=== PATIENT | female | born 1965 | race Caucasian/White ===

== ENCOUNTER 2021-06-03 19:22 | Inpatient (IN) | payer BC ==
--- OUTSIDE RECORDS SUMMARY | 2021-06-03 19:26 | XMS REPORT | Continuity of Care Document ---
:1965 Author Organization [facility] t Address [address] [place] [address] Care Team Providers Name Role Phone SAKINA Attending Clinician Unavailable Mandeep Attending Clinician Unavailable Linda OREILLY Attending Clinician Unavailable Payers Payer Name Policy Type Policy Number Effective Date Expiration Date S elvis [id number] PPO [id number] 2021 00:00:00 Problems This patient has no known problems. Allergies, Adverse Reactions, Alerts This patient has no known allergies or adverse reactions. Social History Social Habit Start Date Stop Date Quantity Comments Source Tobacco use and 2021-05-28 2021-05-28 Smokeless tobacco [facility] exposure 00:00:00 00:00:00 non-user Alcohol intake 2021-05-28 2021-05-28 [facility] 00:00:00 00:00:00 non-drinker (finding) Sex Ass[birth year] At [birth year] [facility] 00:00:00 00:00:00 Smoking Status Start Date Stop Date Source Never smoked tobacco [facility] Medications Ordered Filled Start Stop Current Ordering Indication Dosage Frequency Signature Comments Components Source Medication Medication Date Date Medication? Clinician (SIG) Name Name No known No No known PR medications 2-24 medication He alth 10:14: s 06 Procedures This patient has no known procedures. Encounters Start End Encounter Admission Attending Care Care Encounter Source Date/Time Date/Time Type Type Clinicians Facility Department ID 2021-05-25 [id number] [place] 10:32:52 [facility] 2021-04-[address] [facility] [id number] - [facility] 11:07:13 [id number] [facility] 2021-04-29 [facility] [id number] - [facility] 11:04:31 [id number] [facility] 2021-06-03 2021-06-03 Telephone Arabella Mckeon [id number] [place] 00:00:00 00:00:00 Arabella Mckeon [id number] [facility] [id number] [facility] [id number] 1 Results This patient has no known results.
[2021-06-03] MEDS ORDERED: MORPHINE 4 MG/ML SYR ONE ×2 (20:18→23:39)
[2021-06-03] MEDS ORDERED: ONDANSETRON 4 MG/2 ML VIAL ONE ×2 (20:18→23:39)
[2021-06-03] MEDS ORDERED: FAMOTIDINE 20 MG/2 ML VIAL IV ONE (20:19)
[2021-06-03] MEDS ORDERED: NA CHLORIDE 0.9% 1,000 ML ONE (20:19)
[2021-06-03 20:35] LABS: Urine Blood Negative (Negative); Urine Glucose Negative (Negative); Urine Protein Negative (Negative); Urine Specific Gravity >=1.030 (1.005-1.030); Urine pH 5.5 (5.0-7.0)
[2021-06-03 20:49] LABS: Absolute Lymphocytes (CBC) 4.4 K/uL (0.7-4.9); Hematocrit 48.8 % (36.0-45.0); Lymphocytes % 27.9 % (15.3-44.8); MPV 9.2 fL (7.6-11.3); RBC Red Blood Cell Count 5.73 M/uL (3.86-4.86)
[2021-06-03 21:07] LABS: Barbiturates NEGATIVE (NEGATIVE); Benzodiazepines NEGATIVE (NEGATIVE); Cocaine NEGATIVE (NEGATIVE); METHAMPHETAM NEGATIVE (NEGATIVE); Methadone NEGATIVE (NEGATIVE); Opiates NEGATIVE (NEGATIVE); Phencyclidine NEGATIVE (NEGATIVE); THC Cannibis NEGATIVE (NEGATIVE)
[2021-06-03 21:27] LABS: Albumin 4.1 g/dL (3.4-5.0); Bilirubin Direct 0.1 mg/dL (0-0.2); Bilirubin Total 0.5 mg/dL (0.2-1.0); Potassium 3.8 mmol/L (3.5-5.1); Protein, Total 8.2 g/dL (6.4-8.2)
[2021-06-03 21:49] LABS: Urine Bacteria <20 /HPF (<20); Urine RBC <5 /HPF (NONE SEEN)
--- NOTE | 2021-06-03 23:42 | ER ---
Nurse's Notes [facility] Name: Nereida Mason Age: 56 yrs Sex: Female : 1965 Arrival Date: 06/03/2021 Time: 19:25 Bed 7 Private MD: Diagnosis: Nausea with vomiting, unspecified Presentation: 06/03 19:37 Chief complaint: Patient states: "I have been having right sided stomach pain that has ab2 been going on for a few weeks and today it has gotten so severe I cant walk or eat. I've been vomiting all day.". Coronavirus screen: Vaccine status: Patient reports being unvaccinated. Client denies travel out of the [place] in the last 14 days. At this time, the client does not indicate any symptoms associated with coronavirus-19. Ebola Screen: Patient negative for fever greater than or equal to 101.5 degrees Fahrenheit, and additional compatible Ebola Virus Disease symptoms Patient denies exposure to infectious person. Patient denies travel to an Ebola-affected area in the 21 days before illness onset. No symptoms or risks identified at this time. Initial Sepsis Screen: Does the patient meet any 2 criteria? HR > 90 bpm. No. Patient's initial sepsis screen is negative. Does the patient have a suspected source of infection? No. Patient's initial sepsis screen is negative. Risk Assessment: Do you want to hurt yourself or someone else? Patient reports no desire to harm self or others. Onset of symptoms is unknown. 19:37 Method Of Arrival: Ambulatory ab2 19:37 Acuity: DANIELLE 3 ab2 Triage Assessment: 19:42 General: Appears in no apparent distress. uncomfortable, Behavior is calm, cooperative, ab2 appropriate for age. Pain: Complains of pain in right upper quadrant and right lower quadrant Pain currently is 10 out of 10 on a pain scale. GI: Pt is actively vomiting Reports lower abdominal pain, upper abdominal pain, intolerance of fluids, intolerance of food, nausea, vomiting. Historical: - Allergies: 19:41 No Known Allergies; ab2 - PMHx: 19:41 None; ab2 - PSHx: 19:41 Appendectomy; Tonsillectomy; ab2 - Immunization history:: Adult Immunizations Adult Immunizations up to date. - Social history:: Smoking status: Patient denies any tobacco usage or history of. Screenin:48 Abuse screen: Denies threats or abuse. Nutritional screening: No deficits noted. ss7 Tuberculosis screening: No symptoms or risk factors identified. Fall Risk IV access (20 points). Assessment: 20:00 Reassessment: See triage assessment.. ss7 20:08 Reassessment: Care assumed. Pt wheeled to Ct per radiology in [facility]. Will assess upon ss7 return. Ss. 21:26 Reassessment: PO contrast started. 1st was attempted prior to antiemetic and pt ss7 vomitted. . 23:46 Reassessment: Pt wheeled to Room 7 in [facility] with all personal belongings. Care ss7 transferred. Report given by DENILSON Siegel to Ning/Denilson Kidd. . 23:49 GI: Bowel sounds present X 4 quads. Abd is soft X 4 quads Abd is non tender. lr4 Vital Signs: 19:37 BP 125 / 104; Pulse 132; Resp 22; Temp 97.8(TE); Pulse Ox 97% on R/A; Weight 76.2 kg; ab2 Height 5 ft. 6 in. (167.64 cm); Pain 10/10; 22:51 BP 145 / 80; Pulse 91; Resp 18; Pulse Ox 99% ; ss7 03/03 00:00 BP 131 / 86; Pulse 76; Resp 18 S; Pulse Ox 97% on R/A; as6 01:00 BP 122 / 73; Pulse 62; Resp 18 S; Pulse Ox 96% on R/A; as6 02:10 BP 104 / 64; Pulse 60; Resp 20 S; Pulse Ox 97% on R/A; as6 03:00 BP 93 / 66; Pulse 56; Resp 20 S; Pulse Ox 98% on R/A; as6 04:00 BP 95 / 60; Pulse 53; Resp 19 S; Pulse Ox 98% on R/A; as6 03/02 19:37 Body Mass Index 27.12 (76.20 kg, 167.64 cm) ab2 ED Course: 06/03 19:25 Patient arrived in ED. jj6 19:41 Triage completed. ab2 19:42 Arm band placed on left wrist. ab2 19:43 Jose L Tang PA is PHCP. cp 19:43 Alec De Oliveira MD is Attending Physician. cp 20:00 Selina Meyers, DENILSON is Primary Nurse. sm5 20:00 Inserted saline lock: 20 gauge in right antecubital area, using aseptic technique. 5 Blood collected. 20:10 Lipase Sent. sm5 20:10 Hepatic Function Sent. sm5 20:10 CBC with Diff Sent. sm5 20:10 Basic Metabolic Panel Sent. sm5 21:10 Basic Metabolic Panel Sent. sm5 21:11 Hepatic Function Sent. sm5 21:11 Lipase Sent. sm5 21:11 Urine --Ancillary (enter results) Sent. sm5 22:47 CT Abd/Pelvis - PO and IV Contrast In Process Unspecified. EDMS 23:41 Uche Ortega MD is Hospitalizing Provider. cp 23:48 Patient has correct armband on for positive identification. Bed in low position. Call 7 light in reach. Side rails up X2. 23:48 No provider procedures requiring assistance completed. [facility] 06/04 04:42 Patient admitted, IV remains in place. as6 Administered Medications: 06/03 20:24 Drug: Zofran (Ondansetron) 4 mg Route: IVP; Site: right antecubital; sm5 21:10 Follow up: Response: Marked relief of symptoms sm5 20:24 Drug: morphine 4 mg Route: IVP; Site: right antecubital; sm5 21:10 Follow up: Response: Marked relief of symptoms sm5 20:24 Drug: Pepcid (famotidine) 20 mg Route: IVP; Site: right antecubital; sm5 21:09 Follow up: Response: Marked relief of symptoms 5 20:25 Drug: NS 0.9% 1000 ml Route: IV; Rate: 1 bolus; Site: right antecubital; sm5 21:10 Follow up: IV Status: Completed infusion; IV Intake: 1000ml sm5 21:30 Follow up: IV Status: Completed infusion 7 23:46 Drug: Zofran (Ondansetron) 4 mg Route: IVP; Site: right antecubital; ss7 23:50 Follow up: Response: No adverse reaction 7 23:46 Drug: morphine 4 mg Route: IVP; Site: right antecubital; ss7 23:50 Follow up: Response: No adverse reaction [facility] 06/04 01:38 Drug: metroNIDAZOLE 500 mg Volume: 100 ml; Route: IVPB; Infused Over: 30 mins; Site: kd3 right antecubital; 02:31 Follow up: Response: No adverse reaction; IV Status: Completed infusion kd3 01:38 Drug: Phenergan (promethazine) 12.5 mg Route: IVP; Site: right antecubital; kd3 04:42 Follow up: Response: No adverse reaction as6 02:32 Drug: Cipro (ciprofloxacin) 400 mg Volume: 200 ml; Route: IVPB; Infused Over: 60 mins; kd3 Site: right antecubital; 04:43 Follow up: Response: No adverse reaction; IV Status: Completed infusion; IV Intake: as6 200ml Intake: 06/03 21:10 IV: 1000ml; Total: 1000ml. sm5 06/04 04:43 IV: 200ml; Total: 1200ml. as6 Outcome: 06/03 23:41 Decision to Hospitalize by Provider. cp 23:49 Condition: stable lr4 06/04 04:42 Admitted to Tele accompanied by tech, via wheelchair, room 430, with chart, Report as6 called to RN for 430 04:43 Patient left the ED. as6 Signatures: Dispatcher [employer] EDMS Jose L Tang PA PA cp Sarita Heller jj6 Michi Roach RN RN as6 Autumn Wei RN RN kd3 Selina Meyers RN RN sm5 Jordi Louis Shana RN RN ss7 Janina Gonzalez RN RN lr4
--- NOTE | 2021-06-03 23:42 | EDPHYS ---
Physician Documentation [facility] Name: Nereida Mason Age: 56 yrs Sex: Female : 1965 Arrival Date: 06/03/2021 Time: 19:25 Bed 7 Private MD: ED Physician Alec De Oliveira HPI: 06/03 20:05 This 56 yrs old Female presents to ER via Ambulatory with complaints of Abdominal Pain, cp Abdominal Swelling, Abdominal Cramping. 20:05 The patient presents with abdominal pain right lower quadrant. cp 20:05 Onset: The symptoms/episode began/occurred and became worse today, started weeks ago. cp Associated signs and symptoms: Pertinent positives: nausea and vomiting, anorexia, Pertinent negatives: blood in stools, constipation, diarrhea, fever, vomiting blood. The symptoms are described as constant. Modifying factors: the symptoms are aggravated by pressure. Severity of pain: in the emergency department the pain is unchanged despite home interventions. Historical: - Allergies: 19:41 No Known Allergies; ab2 - PMHx: 19:41 None; ab2 - PSHx: 19:41 Appendectomy; Tonsillectomy; ab2 - Immunization history:: Adult Immunizations Adult Immunizations up to date. - Social history:: Smoking status: Patient denies any tobacco usage or history of. ROS: 20:10 Constitutional: Positive for poor PO intake, Negative for body aches, chills, fever. cp 20:10 Cardiovascular: Negative for chest pain, palpitations. cp 20:10 Respiratory: Negative for cough, shortness of breath, wheezing. 20:10 Abdomen/GI: Positive for abdominal pain, nausea and vomiting, anorexia, of the right lower quadrant, Negative for diarrhea, constipation. 20:10 Back: Negative for injury or acute deformity, decreased range of motion. cp 20:10 : Negative for urinary symptoms, vaginal bleeding, vaginal discharge. cp 20:10 Neuro: Negative for altered mental status, headache, weakness. 20:10 All other systems are negative. Exam: 20:15 Constitutional: The patient appears in no acute distress, alert, awake, cp non-diaphoretic, non-toxic, well developed, well nourished, in obvious pain, uncomfortable. 20:15 Head/Face: Normocephalic, atraumatic. cp 20:15 Eyes: Periorbital structures: appear normal, Conjunctiva: normal, no exudate, no injection, Sclera: no appreciated abnormality, Lids and lashes: appear normal, bilaterally. 20:15 ENT: External ear(s): are unremarkable, Nose: is normal, Mouth: Lips: moist, Oral mucosa: pink and intact, moist, Posterior pharynx: Airway: no evidence of obstruction, patent. 20:15 Neck: ROM/movement: is normal, is supple, without pain, no range of motions limitations. 20:15 Chest/axilla: Inspection: normal, Palpation: is normal, no crepitus, no tenderness. 20:15 Cardiovascular: Rate: tachycardic, Rhythm: regular, Edema: is not appreciated, JVD: is not appreciated. 20:15 Respiratory: the patient does not display signs of respiratory distress, Respirations: normal, no use of accessory muscles, no retractions, labored breathing, is not present, Breath sounds: are clear throughout, no decreased breath sounds, no stridor, no wheezing. 20:15 Abdomen/GI: Inspection: abdomen appears normal, Bowel sounds: active, all quadrants, Palpation: soft, in all quadrants, severe abdominal tenderness, in the right lower quadrant, voluntary guarding, is elicited in the right lower quadrant. 20:15 Back: pain, is absent, ROM is normal. 20:15 Neuro: Orientation: to person, place \\T\\ time. Mentation: is normal. Vital Signs: 19:37 BP 125 / 104; Pulse 132; Resp 22; Temp 97.8(TE); Pulse Ox 97% on R/A; Weight 76.2 kg; ab2 Height 5 ft. 6 in. (167.64 cm); Pain 10/10; 22:51 BP 145 / 80; Pulse 91; Resp 18; Pulse Ox 99% ; ss7 03/03 00:00 BP 131 / 86; Pulse 76; Resp 18 S; Pulse Ox 97% on R/A; as6 01:00 BP 122 / 73; Pulse 62; Resp 18 S; Pulse Ox 96% on R/A; as6 02:10 BP 104 / 64; Pulse 60; Resp 20 S; Pulse Ox 97% on R/A; as6 03:00 BP 93 / 66; Pulse 56; Resp 20 S; Pulse Ox 98% on R/A; as6 04:00 BP 95 / 60; Pulse 53; Resp 19 S; Pulse Ox 98% on R/A; as6 06/03 19:37 Body Mass Index 27.12 (76.20 kg, 167.64 cm) ab2 MDM: 06/03 19:55 Patient medically screened. cp 20:30 Differential diagnosis: appendicitis, bowel obstruction, diverticulitis, non-specific cp abd pain. 23:37 Physician consultation: Uche Ortega MD was called at 23:38, left message on voicemail.cp 23:40 Data reviewed: vital signs, nurses notes, lab test result(s), radiologic studies, CT cp scan, I have discussed the patient's presentation/case with the attending Emergency Department Physician; and as a result, I will admit patient. 06/03 19:57 Order name: Basic Metabolic Panel; Complete Time: 22:09 cp 06/03 22:09 Interpretation: Normal except: GLUC 138; GFR 56. cp 06/03 19:57 Order name: CBC with Diff; Complete Time: 21:21 cp 06/03 21:22 Interpretation: Normal except: WBC 15.70; RBC 5.73; HGB 16.3; HCT 48.8; MCV 85.3; NEUT cp A 10.0. 06/03 19:57 Order name: Hepatic Function; Complete Time: 22:09 cp 06/03 19:57 Order name: Lipase; Complete Time: 22:09 cp 06/03 19:57 Order name: Urine Microscopic Only; Complete Time: 22:09 cp 06/03 19:57 Order name: UDS; Complete Time: 21:21 cp 06/03 20:34 Order name: Urine Dipstick-Ancillary; Complete Time: 21:21 EDMS 06/03 20:38 Order name: Urine --Ancillary (enter results) cs9 06/03 20:39 Order name: Urine --Ancillary; Complete Time: 22:09 EDMS 06/04 00:19 Order name: COVID-19/FLU A+B (Document "Date of Onset" if Symptomatic); Complete Time: cs9 02:32 06/04 01:30 Order name: Basic Metabolic Panel EDMS 06/04 01:30 Order name: CBC with Automated Diff EDMS 06/04 01:30 Order name: Lipase EDMS 06/03 19:57 Order name: IV Saline Lock; Complete Time: 19:58 cp 06/03 19:57 Order name: Labs collected and sent; Complete Time: 19:58 cp 06/03 19:57 Order name: CT Abd/Pelvis - PO and IV Contrast cp 06/03 19:57 Order name: Urine Dipstick-Ancillary (obtain specimen); Complete Time: 20:41 cp 06/03 19:57 Order name: Urine Test (obtain specimen); Complete Time: 20:41 cp 06/04 01:30 Order name: NPO EDMS 06/04 01:30 Order name: Liver (Hepatic) Function EDMS Administered Medications: 20:24 Drug: Zofran (Ondansetron) 4 mg Route: IVP; Site: right antecubital; sm5 21:10 Follow up: Response: Marked relief of symptoms sm5 20:24 Drug: morphine 4 mg Route: IVP; Site: right antecubital; sm5 21:10 Follow up: Response: Marked relief of symptoms sm5 20:24 Drug: Pepcid (famotidine) 20 mg Route: IVP; Site: right antecubital; sm5 21:09 Follow up: Response: Marked relief of symptoms sm5 20:25 Drug: NS 0.9% 1000 ml Route: IV; Rate: 1 bolus; Site: right antecubital; sm5 21:10 Follow up: IV Status: Completed infusion; IV Intake: 1000ml sm5 21:30 Follow up: IV Status: Completed infusion ss7 23:46 Drug: Zofran (Ondansetron) 4 mg Route: IVP; Site: right antecubital; ss7 23:50 Follow up: Response: No adverse reaction ss7 23:46 Drug: morphine 4 mg Route: IVP; Site: right antecubital; ss7 23:50 Follow up: Response: No adverse reaction ss7 06/04 01:38 Drug: metroNIDAZOLE 500 mg Volume: 100 ml; Route: IVPB; Infused Over: 30 mins; Site: kd3 right antecubital; 02:31 Follow up: Response: No adverse reaction; IV Status: Completed infusion kd3 01:38 Drug: Phenergan (promethazine) 12.5 mg Route: IVP; Site: right antecubital; kd3 04:42 Follow up: Response: No adverse reaction as6 02:32 Drug: Cipro (ciprofloxacin) 400 mg Volume: 200 ml; Route: IVPB; Infused Over: 60 mins; kd3 Site: right antecubital; 04:43 Follow up: Response: No adverse reaction; IV Status: Completed infusion; IV Intake: as6 200ml Disposition: 06:06 Co-signature as Attending Physician, Alec De Oliveira MD I agree with the assessment and rn plan of care. Attestation: The patient's history, exam findings, diagnostics, and a summary of any interventions or procedures was reviewed in detail with Jose L HANSON. Disposition Summary: 06/03/21 23:41 Hospitalization Ordered Hospitalization Status: Inpatient Admission cp Provider: Uche Ortega cp Location: Telemetry/MedSurg (Inpatient) cp Condition: Stable cp Problem: new cp Symptoms: have improved cp Bed/Room Type: Standard cp Room Assignment: 430(06/04/21 02:06) cg Diagnosis - Nausea with vomiting, unspecified cp Forms: - Medication Reconciliation Form cp - SBAR form cp Signatures: Dispatcher [employer] EDMS Alec De Oliveira MD MD rn Page, Corey, PA PA cp Grace Boyer, RN RN cg Autumn Wei, RN RN kd3 Selina Meyers, RN RN sm5 Jordi Louis Shana, RN RN ss7 Michi Roach RN as6 Corrections: (The following items were deleted from the chart) 06/03 21:11 19:58 Abdomen Pelvis W Con+CT.RAD.BRZ ordered. EDMS EDMS 06/04 01:18 00:19 SARS-COV-2 RT PCR+MOL.LAB.BRZ ordered. EDMS EDMS 02:06 06/03 23:41 cp cg
[2021-06-04] MEDS ORDERED: LIDOCAINE VISCOUS 2% SOLN 15 ML UDC ONE (01:04)
[2021-06-04] MEDS ORDERED: ONDANSETRON 4 MG/2 ML VIAL IV PRN (01:24)
[2021-06-04] MEDS ORDERED: PROMETHAZINE INJ 25 MG/ML AMP ONE (01:35)
[2021-06-04 02:01] LABS: SARS-COV-2 RT PCR NEGATIVE (NEGATIVE)
[2021-06-04 05:37] VITALS: BMI 27.1
[2021-06-04] MEDS: NA CHLORIDE 0.9% 1,000 ML IV SCH ×3 (06:43→22:55)
[2021-06-04 07:37] LABS: Hematocrit 38.1 % (36.0-45.0); Lymphocytes % 26.5 % (15.3-44.8); MPV 8.9 fL (7.6-11.3); RBC Red Blood Cell Count 4.39 M/uL (3.86-4.86)
[2021-06-04 07:44] LABS: Albumin 2.9 g/dL (3.4-5.0); Bilirubin Direct 0.1 mg/dL (0-0.2); Bilirubin Total 0.4 mg/dL (0.2-1.0); Protein, Total 5.9 g/dL (6.4-8.2)
[2021-06-04] MEDS ORDERED: INFLUENZA VACCINE (for 6+ mo) 0.5 ML DOSE IMVAC ONE (08:00)
[2021-06-04] MEDS ORDERED: METRONIDAZOLE 500mg IVPB 500 MG/100 ML BAG IV SCH (09:00)
[2021-06-04] MEDS ORDERED: CIPROFLOXACIN 400mg IV 400 MG/200 ML BAG IV SCH (09:00)
[2021-06-04] MEDS: MORPHINE 4 MG/ML SYR IV PRN ×3 (09:59→22:55)
[2021-06-04] MEDS ORDERED: MINERAL OIL 30 ML UCUP PO ONE ×2 (11:12→19:00)
--- NOTE | 2021-06-04 11:19 | RAD REPORT ---
EXAM DESCRIPTION: Abdomen Pelvis W Contrast 06/03/2021 10:53 PM [facility] CLINICAL HISTORY: 56 years, Female, nausea/vomiting;Abd pain COMPARISON: None. TECHNIQUE: Contrast-enhanced images of the abdomen and pelvis were performed utilizing 5 mm slice th ickness at 5 mm interval reconstruction from the lung bases to the ischial tuberosities after the adm inistration IV contrast. In addition multiplanar reformats in the coronal and sagittal plane were obtained and reviewed. This exam was performed according to our departmental dose-optimization protocol, which includes auto mated exposure control, adjustment of the mA and/or kV according to patient size and/or use of iterat nelson reconstruction technique. FINDINGS: The lung bases demonstrate to be clear. Minimal mucosal thickening distal esophagus perhap s suggesting minimal esophagitis. There is a radiodense ring structure within the gastroesophageal junction connected to a tubing with a reservoir along the left midline subcutaneous tissue corresponding to a lap band procedure. There are dilated mid/distal small bowel loops extending down to the pelvis. There is questionable de compressed folding small bowel at the right lower quadrant on axial image [id number] and coronal image 27- 44 for which the possibility of internal hernia with early high-grade partial bowel obstruction could be of consideration. The appendix was not visualized. The left site colon is decompressed. There is minimal diverticulosis within the sigmoid colon. Small trace free fluid posterior cul-de-sac. The liver, gallbladder, pancreas, spleen and adrenal glands demonstrate to be unremarkable, no focal lesions are noted. The kidneys demonstrate normal uptake of contrast media. No evidence for nephrolithiasis and/or hydro nephrosis. The urinary bladder demonstrate to be unremarkable. The uterus is unremarkable. There are no adnexa l masses. The aorta demonstrate to be normal. There is no retroperitoneal lymphadenopathy. The re st of the soft tissue and bony structures are within normal limits. IMPRESSION: Status post lap pad procedure. Minimal mucosal thickening distal esophagus perhaps suggesting minimal esophagitis. Dilated mid/distal small bowel loops extending down to the pelvis with questionable decompressed fold ing of small bowel at the right lower quadrant which the possibility of internal hernia with lytic th e partial bowel obstruction could be of consideration. Small trace free fluid posterior cul-de-sac. Electronically signed by: Michael Zafar MD 06/03/2021 11:02 PM [facility] Due to temporary technical issues with the PACS/Fluency reporting system, reports are being signed by the in house radiologists without review as a courtesy to insure prompt reporting. The interpreting radiologist is fully responsible for the content of the report.
[2021-06-04] MEDS ORDERED: NA CHLORIDE 0.9% 500 ML IV ONE (13:46)
--- NOTE | 2021-06-04 14:26 | P.HP ---
Date of Service: 06/04/21 PC: This 56-year-old female presents emergency room with acute exacerbation of a chronic right lower quadrant abdominal pain. HPC: Patient has been having right lower quadrant abdominal pain over the last few days. Yesterday intensified and became more severe than usual. She came to the emergency room as she was having nausea and vomiting. 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 She has had lap band deflated recently. PMHx: No diabetes, no hypertension Social Hx: Denies any allergies Sys R: No cough, wheeze, shortness of breath. Has had some upper abdominal pain recently and had seen a physician who deflated her LAP-BAND. He was concerned about a possible hiatal hernia and LAP-BAND migration. O/E: This morning she is awake alert vital signs are stable not in any acute distress HEENT: Nonicteric Chest: Air entry equal bilaterally Abd: Soft nontender no masses are palpable [place]: Intact Data: CT scan initially suggested some type of possible partial small bowel obstruction in the right lower quadrant. Impression: Patient has had intermittent right lower quadrant abdominal pain, secondary most likely adhesions. Plan: Patient has had a lot of abdominal pain she is also has issue with possible hiatal hernia, possible LAP-BAND malplacement, chronic esophagitis. Her pain is mostly in the right lower quadrant and she would really like to get rid of this pain and discomfort. She is also considering possible LAP-BAND surgery and may require in addition to all this colonoscopy I have explained to her that if she is not at this current time and surgical extremities. I would recommend referral to Dr. Willett up in [place]. That way she can be seen by 1 team who can address all of her issues and have them done it once. This is appealing to the patient and is our current plan of action. She has been given mineral oil today, we will see if her pain remains manageable and if so anticipate discharge with early follow-up in [place].
[2021-06-05 03:59] LABS: Hematocrit 35.3 % (36.0-45.0); Lymphocytes % 41.3 % (15.3-44.8); MPV 8.9 fL (7.6-11.3); RBC Red Blood Cell Count 4.07 M/uL (3.86-4.86)
[2021-06-05 04:20] LABS: ALT/SGPT 16 U/L (12-78); AST/SGOT 10 U/L (15-37); Albumin 2.7 g/dL (3.4-5.0); Alkaline Phosphatase 39 U/L (45-117); BUN Blood Urea Nitrogen 7 mg/dL (7-18); Bicarbonate 28 mmol/L (21-32); Bilirubin Direct 0.1 mg/dL (0-0.2); Bilirubin Total 0.4 mg/dL (0.2-1.0); Glucose Level 87 mg/dL (74-106); Lipase 90 U/L (73-393); Potassium 3.8 mmol/L (3.5-5.1); Protein, Total 5.4 g/dL (6.4-8.2); Sodium Level 142 mmol/L (136-145)
[2021-06-05] MEDS: MORPHINE 4 MG/ML SYR IV PRN ×3 (10:08→23:18)
[2021-06-05] MEDS: NA CHLORIDE 0.9% 1,000 ML IV SCH ×2 (12:08→18:00)
[2021-06-05] MEDS ORDERED: Ringers Lactate 1,000 ML IV ONE ×3 (12:51→15:55)
[2021-06-05] MEDS ORDERED: CIPROFLOXACIN 400mg IV 400 MG/200 ML BAG IV ONE (13:01)
--- NOTE | 2021-06-05 13:35 | P.PN ---
Date of Service: 06/05/21 S: Patient states she still has right-sided abdominal pain, has not passed any gas per rectum or had any bowel movements. States that she has been blowing up, and her abdomen is getting quite distended and painful. O: Abdomen distended, no true guarding or rebound but patient is obviously uncomfortable. A: Patient is partial small bowel obstruction, most likely from adhesions. PE: Yesterday I discussed with the patient and her the possibility of nonoperative management at the moment and seeking general counselor at the colorectal group in [place]. She however did not want to go home yet as her pain was not yet under control. This morning the pain is intensified, and she would prefer to have her procedures done here. I have explained to her her pathology the likelihood of adhesions. I am going to do a laparoscopic possible open exploration to find out the etiology of her partial small bowel obstruction. The risks of this procedure have been discussed in detail. The possibility of bleeding, infection, abscess formation were explained. The possible need to resect: And to have ongoing issues with pain and adhesions were explained. Hernia formation as well as wound infections and scars were outlined. She understands and wants to proceed.
[2021-06-05] MEDS ORDERED: FENTANYL CITR 250 MCG/5 ML ONE (13:48)
[2021-06-05] MEDS ORDERED: dexAMETHasone 10 MG/ML VIAL ONE (13:48)
[2021-06-05] MEDS ORDERED: propofoL 200 MG/20 ML VIAL IV ONE (13:48)
[2021-06-05] MEDS ORDERED: ROCURONIUM 50 MG/5 ML VIAL IV ONE (13:48)
[2021-06-05] MEDS ORDERED: LIDOCAINE 2% MPF 5 ML VIAL ONE (13:48)
[2021-06-05] MEDS ORDERED: MIDAZOLAM HCL 2 MG/2 ML INJ ONE (13:48)
[2021-06-05] MEDS ORDERED: ONDANSETRON 4 MG/2 ML VIAL ONE (13:53)
[2021-06-05] MEDS ORDERED: GLYCOPYRROLATE 0.2 MG/ML SYR ONE ×2 (15:09→17:27)
[2021-06-05] MEDS ORDERED: Phenylephrine HCl 10 MG/ML 1 ML VIAL ONE (15:34)
[2021-06-05] MEDS ORDERED: NS 0.9% VIAL 10 ML ONE (15:46)
[2021-06-05] MEDS ORDERED: ALBUMIN HUM 5% 500 ML IV ONE (15:49)
[2021-06-05] MEDS ORDERED: VECURONIUM 10 MG/VIAL IV ONE (16:16)
[2021-06-05] MEDS ORDERED: NEOSTIGMINE 1 MG/ML -5 ML ONE (17:27)
[2021-06-05] MEDS ORDERED: FENTANYL CITR 100 MCG/2 ML ONE (17:44)
[2021-06-05] MEDS: HYDROMORPHONE HCL 2 MG/ML inj ONE ×4 (17:51→18:18)
[2021-06-05] MEDS ORDERED: PROMETHAZINE INJ 25 MG/ML AMP ONE (18:33)
[2021-06-05] MEDS: Ringers Lactate 1,000 ML IV SCH (18:52)
[2021-06-05] MEDS ORDERED: Levofloxacin500mg IV 500 MG/100 ML BAG IV SCH (22:00)
[2021-06-06] MEDS: MORPHINE 4 MG/ML SYR IV PRN ×7 (01:24→18:06)
[2021-06-06] MEDS: Ringers Lactate 1,000 ML IV SCH ×4 (02:05→20:19)
[2021-06-06 04:33] LABS: Absolute Lymphocytes (CBC) 0.8 K/uL (0.7-4.9); Hematocrit 33.7 % (36.0-45.0); Lymphocytes % 4.7 % (15.3-44.8); MPV 8.6 fL (7.6-11.3); RBC Red Blood Cell Count 3.88 M/uL (3.86-4.86)
[2021-06-06] MEDS ORDERED: DIAZEPAM 5 MG TABLET PO ONE ×2 (08:05→21:00)
[2021-06-06] MEDS: Levofloxacin 750mg IV 750 MG/150 ML BAG IV SCH (09:00)
[2021-06-06] MEDS ORDERED: PROMETHAZINE INJ 25 MG/ML AMP IV ONE (13:03)
--- NOTE | 2021-06-06 13:21 | P.OP ---
Preoperative diagnosis: Partial small bowel obstruction partial small bowel obstruction Postoperative diagnosis: The same Primary procedure: Laparoscopy converted to exploratory laparotomy Secondary procedure: Resection of small bowel, distal ileum and ileocecal valve Other procedure(s): Repair of enterotomy Anesthesia: General Estimated blood loss: 200 cc Specimen: Distal ileum and proximal right colon Operative Technique: The patient brought the operating room and placed supine on the table. After the induction of adequate general endotracheal anesthesia, a Castro catheter was inserted. The area of the abdomen was now prepped with a DuraPrep solution, and she was draped in the usual aseptic manner. After a surgical timeout, attention was turned towards the left side of the abdomen. A skin incision was made. This was brought down through the skin and subcutaneous tissue. The Visiport was now used to attempt to enter into the peritoneal cavity. With the laxity of the patient's abdominal wall we had to reset the angle of our camera to allow us a second attempt to enter the peritoneal cavity. On the second attempt we could see that there was some was some bleeding as well as a small tear in the small bowel. Attention was also turned down towards the right lower quadrant. We could see that there was a large adhesive mass just adjacent to the right colon. At this point it became obvious that we needed to do an open procedure. A generous midline incision was made. This brought down through the skin and subcutaneous tissue. The fascia was opened in the midline. This allowed us access to the peritoneal cavity. We could see this large area where the obstruction had occurred in the right lower quadrant. However we turned our attention to where the small enterotomy had been made. This was controlled using some silk sutures to close the hole. We also has some bleeding which came from the anterior abdominal wall from the trocar site. This was dealt with by using a 16 Polish Castro catheter and tamponading the balloon against the abdominal wall. We switched our attention down to the right lower quadrant. We could see as we ran the bowel from the ligament of Treitz down to the ileocecal valve approximately a foot and half from the cecum there was a start of a large amount of adhesions. Initial dissection of this revealed an area that appeared to be a Meckel's diverticulum. As we progressed closer to the distal ileum this area was wrapped up and covered it almost like Franklyn like scar tissue almost completely obstructing the bowel in this area. The distal ileum was transected just proximal to the area suspected to be a Meckel's diverticulum. At this point a [id number]-[id number] anastomosis was done between the cecum and this portion of the ileum. Using a stapler we were able to both closed the anastomosis as well as resect this portion of bowel which was sent for histopathology. It was necessary to mobilize the right colon to allow for easy access to this area as well as to take tension off any repairs. The patient has had a previous appendectomy in the past. At this point reinforcement sutures were placed to hold the ileum tension free against the cecum. We returned back to her initial enterotomy. Once again a stapler with a [id number] functional end-to-end anastomosis was performed to resect out this area. Bowel continuity having been restored, the area was irrigated with a saline solution. The clots and irrigant were evacuated from the peritoneal cavity. The midline incision was closed with a running suture nylon. [place] were then applied to the skin. We also placed 2 sutures at our trocar sites to allow for adequate hemostasis. These areas were intact when the peritoneal cavity was closed. At the end of the procedure she was in a stable condition was sent to the recovery room. Needle sponge instrument count were correct. No drains were placed. Complications: Other Complications: Enterotomy Transferred to: Recovery Room Condition: Good
--- NOTE | 2021-06-06 13:23 | P.PN ---
Date of Service: 06/06/21 S: Patient was somewhat uncomfortable early this morning, and her pain was not adequate for her. I have increased her dose of morphine, and she seems to be much improved. O: Vital signs are stable, adequate urine output. Lab work reviewed. A: Surgically stable PE: I discussed the findings with the patient in regards to her surgical procedure. She is relatively happy that a source for her complaints were found. We are going to get her pain under better control today, let her rest, and be more aggressive tomorrow. At that time we may DC her Castro catheter, get her up ambulating, and hopefully resume her normal bowel function in the next day or so.
[2021-06-06 17:35] LABS: Potassium 3.9 mmol/L (3.5-5.1)
[2021-06-06] MEDS ORDERED: MORPHINE 4 MG/ML SYR ONE (23:54)
[2021-06-07] MEDS ORDERED: MORPHINE 4 MG/ML SYR ONE ×3 (00:03→20:48)
[2021-06-07] MEDS: MORPHINE 4 MG/ML SYR IV PRN ×6 (00:05→18:07)
[2021-06-07] MEDS: ONDANSETRON 4 MG/2 ML VIAL IV PRN (00:05)
[2021-06-07] MEDS: Ringers Lactate 1,000 ML IV SCH ×3 (03:43→18:07)
[2021-06-07 06:48] LABS: Absolute Lymphocytes (CBC) 1.7 K/uL (0.7-4.9); Hematocrit 29.6 % (36.0-45.0); Lymphocytes % 14.9 % (15.3-44.8); MPV 8.3 fL (7.6-11.3); RBC Red Blood Cell Count 3.43 M/uL (3.86-4.86)
[2021-06-07 07:00] LABS: BUN Blood Urea Nitrogen 9 mg/dL (7-18); Bicarbonate 29 mmol/L (21-32); Glucose Level 88 mg/dL (74-106); Potassium 3.7 mmol/L (3.5-5.1); Sodium Level 136 mmol/L (136-145)
[2021-06-07] MEDS: Levofloxacin 750mg IV 750 MG/150 ML BAG IV SCH (08:28)
[2021-06-07] MEDS ORDERED: DIAZEPAM 5 MG TABLET PO ONE (19:51)
--- NOTE | 2021-06-07 20:21 | P.PN ---
Date of Service: 06/07/21 S: Patient has no specific complaints. Appears to be more comfortable. Her pain medicine however suddenly dropped off and she has considerable pain. O: Vital signs are stable, clinically looks very well. Still has Castro catheter in place, also her SCDs. A: Progressing well from a surgical standpoint. Still has, as expected, a po stoperative ileus. P:Progressing, tomorrow will be more aggressive and we will start to DC Castro catheter, order PT for the patient, ambulate her more, and his usual encourage incentive spirometry. We will also give the patient a Valium tonight, to help her relax and sleep.
[2021-06-07] MEDS ORDERED: DIAZEPAM 5 MG TABLET ONE (20:44)
[2021-06-08] MEDS: MORPHINE 4 MG/ML SYR IV PRN ×8 (02:28→23:51)
[2021-06-08] MEDS: Ringers Lactate 1,000 ML IV SCH ×3 (04:56→23:51)
[2021-06-08] MEDS ORDERED: POTASSIUM CL SA 10 MEQ TAB PO ONE (09:00)
[2021-06-08] MEDS: Levofloxacin 750mg IV 750 MG/150 ML BAG IV SCH (10:06)
[2021-06-08] MEDS: ONDANSETRON 4 MG/2 ML VIAL IV PRN (10:28)
--- NOTE | 2021-06-08 17:13 | P.PN ---
Date of Service: 06/08/21 S: Patient has no specific complaints. Appears to be more comfortable. Still no bowel movements. Says she has a lot of gas in her abdomen. O: Vital signs are stable, clinically looks very well. Still has Castro catheter in place, also her SCDs. A: Progressing well from a surgical standpoint. Still has, as expected, a postoperative ileus. P: PT for patient in a.m. Full liquids as tolerated. Pain medicine change from 6 to 4 mg per every 2 hours for morphine.
[2021-06-08] MEDS: HYDROCODONE/APAP 10/325 TAB PO PRN (17:38)
[2021-06-09] MEDS: Ringers Lactate 1,000 ML IV SCH ×2 (02:05→08:20)
[2021-06-09] MEDS: MORPHINE 4 MG/ML SYR IV PRN ×4 (04:23→20:33)
[2021-06-09] MEDS: HYDROCODONE/APAP 10/325 TAB PO PRN ×2 (08:20→14:59)
[2021-06-09] MEDS: Levofloxacin 750mg IV 750 MG/150 ML BAG IV SCH (08:21)
[2021-06-09] MEDS ORDERED: POTASSIUM CL SA 10 MEQ TAB PO ONE (09:00)
[2021-06-09] MEDS: D5.45NS W/KCL 20MEQ 20 MEQ/1,000 ML BAG IV SCH (17:13)
[2021-06-09] MEDS: ONDANSETRON 4 MG/2 ML VIAL IV PRN (20:33)
[2021-06-10] MEDS: MORPHINE 4 MG/ML SYR IV PRN ×5 (03:00→20:58)
[2021-06-10] MEDS: D5.45NS W/KCL 20MEQ 20 MEQ/1,000 ML BAG IV SCH ×3 (06:28→21:00)
[2021-06-10] MEDS: Levofloxacin 750mg IV 750 MG/150 ML BAG IV SCH (08:45)
[2021-06-10] MEDS ORDERED: MINERAL OIL 30 ML UCUP PO ONE ×2 (12:06→21:00)
[2021-06-10] MEDS: HYDROCODONE/APAP 10/325 TAB PO PRN ×2 (12:30→18:12)
[2021-06-11] MEDS: MORPHINE 4 MG/ML SYR IV PRN ×6 (01:41→23:27)
[2021-06-11] MEDS: HYDROCODONE/APAP 10/325 TAB PO PRN ×2 (08:23→21:47)
[2021-06-11] MEDS: Levofloxacin 750mg IV 750 MG/150 ML BAG IV SCH (08:24)
[2021-06-11] MEDS: D5.45NS W/KCL 20MEQ 20 MEQ/1,000 ML BAG IV SCH ×2 (08:24→20:31)
[2021-06-11] MEDS ORDERED: DIAZEPAM 5 MG TABLET PO PRN (12:04)
--- NOTE | 2021-06-11 13:49 | P.PN ---
Date of Service: 06/11/21 S: Patient was rather upset this morning. Having some difficulty getting her pain relieved. Otherwise has been up ambulating, trying to eat more, good effort on incentive spirometry. O: Vital signs are stable, incision looks good. A: Patient still slow to mobilize, and we do not have her pain under control yet. Have changed around her pain medications. PE: Anticipating patient discharge in a.m. I have discussed this with her. We will see her in my office on Tuesday. She is comfortable with this but final decision will be made tomorrow.
[2021-06-11] MEDS: ENSURE HIGH PROTEIN 237 ML CAN PO SCH (20:32)
[2021-06-12] MEDS: HYDROCODONE/APAP 10/325 TAB PO PRN ×4 (00:33→14:04)
[2021-06-12] MEDS: MORPHINE 4 MG/ML SYR IV PRN ×4 (04:31→21:41)
[2021-06-12] MEDS: D5.45NS W/KCL 20MEQ 20 MEQ/1,000 ML BAG IV SCH ×2 (06:36→16:46)
[2021-06-12] MEDS: Levofloxacin 750mg IV 750 MG/150 ML BAG IV SCH (08:08)
[2021-06-12] MEDS: ENSURE HIGH PROTEIN 237 ML CAN PO SCH ×2 (08:09→20:28)
[2021-06-13] MEDS: MORPHINE 4 MG/ML SYR IV PRN ×6 (01:33→20:10)
[2021-06-13] MEDS: HYDROCODONE/APAP 10/325 TAB PO PRN ×6 (02:30→22:47)
[2021-06-13] MEDS: D5.45NS W/KCL 20MEQ 20 MEQ/1,000 ML BAG IV SCH ×4 (04:41→20:00)
[2021-06-13] MEDS: Levofloxacin 750mg IV 750 MG/150 ML BAG IV SCH (08:04)
[2021-06-13] MEDS: ENSURE HIGH PROTEIN 237 ML CAN PO SCH ×2 (08:04→21:00)
[2021-06-13 21:55] VITALS: O2SAT 92
[2021-06-14] MEDS: MORPHINE 4 MG/ML SYR IV PRN ×3 (00:13→06:39)
[2021-06-14 05:38] LABS: Absolute Lymphocytes (CBC) 1.1 K/uL (0.7-4.9); Hematocrit 27.9 % (36.0-45.0); Lymphocytes % 18.6 % (15.3-44.8); MPV 7.8 fL (7.6-11.3); RBC Red Blood Cell Count 3.28 M/uL (3.86-4.86)
[2021-06-14 06:00] LABS: ALT/SGPT 11 U/L (12-78); AST/SGOT 10 U/L (15-37); BUN Blood Urea Nitrogen 4 mg/dL (7-18); Bicarbonate 27 mmol/L (21-32); Glucose Level 104 mg/dL (74-106); Potassium 4.1 mmol/L (3.5-5.1); Sodium Level 136 mmol/L (136-145)
[2021-06-14] MEDS: D5.45NS W/KCL 20MEQ 20 MEQ/1,000 ML BAG IV SCH ×2 (06:00→15:06)
[2021-06-14] MEDS: ENSURE HIGH PROTEIN 237 ML CAN PO SCH (09:16)
[2021-06-14 17:13] VITALS: BP 116/67; TEMP 99.1
[2021-06-14] MEDS: HYDROCODONE/APAP 10/325 TAB PO PRN (17:25)
--- NOTE | 2021-06-18 13:31 | P.PN ---
Date of Service: 06/12/21 S: Still having trouble getting her pain under control. Seems is not lasting long enough. That she has difficulty ambulating, and getting out of bed. Still has not had any bowel movements. O: Vital signs are stable, incision looks good. A: Patient still slow to mobilize, and we do not have her pain under control yet. Once again have discussed her pain medications with the patient. PE: We will try again to discharge the patient in the morning. Her abdomen from a surgical standpoint seems to be intact. Will review again tomorrow.
--- NOTE | 2021-06-18 13:33 | P.PN ---
Date of Service: 06/13/21 S: Finally had a good night last night. Pain medicine seems to be adequate. Has been up trying to walk, use her incentive spirometer. She thinks she will be ready tomorrow. O: Stable A: Patient has had difficulty getting her pain under control. Has problems getting in and out of bed. Pain appears to be mostly incisional. PE: Continue current therapy, anticipate discharge in a.m.
--- NOTE | 2021-06-18 13:35 | P.PN ---
Date of Service: 06/14/21 S: Pain management seems to be appropriate at this time. Feels good, is now able to fend for herself, get out of bed, get to the restroom, and take p.o. Still no bowel movements, but passing gas per rectum. O: Stable A: Surgically stable, will discharge today. PE: DC IV, discharge home. Continue incentive spirometry. Pain medicine as needed. Diet as tolerated. See me on Tuesday. Any questions or problems, go to the emergency room or contact me.
--- NOTE | 2021-06-18 13:43 | P.DS ---
Admission Date: 06/04/21 Discharge Date: 06/14/21 Primary Care Provider: Shannon Chung Condition: GOOD Reason for Admission: Bowel obstruction, postoperative surgical pain Procedures: Exploratory laparotomy with small bowel resection, partial colectomy and primary anastomosis Brief History of Present Illness: This patient presented through the emergency room with lower abdominal pain, nausea, and vomiting. Hospital Course: The patient was admitted to the hospital with a diagnosis of partial small bowel obstruction. She was given IV fluids, pain medicine, and observed. She appeared to improve slightly. However on Tuesday she began to have pain out of proportion to examination. She was brought to the operating room for a laparoscopic possible open procedure to determine the etiology and reason for her partial bowel obstruction. At the time of surgery we found a area of marked adhesions in the right lower quadrant of her abdomen. The procedure was converted to exploratory laparotomy. She underwent a resection of tangled bowel in the right lower quadrant. She was repaired with a ileocolic anastomosis. Postoperatively the patient did well. She did have some postoperative ileus. However after 3 to 4 days she has some difficulty getting her pain under control. Finally we were able to get her converted to p.o. medication that was effective. At that point she was able to ambulate, fend for herself, and tolerated diet. She was deemed fit for discharge. Vital Signs/Physical Exam: Temp Pulse Resp BP Pulse Ox 99.1 F 89 16 116/67 95 06/14/21 16:00 06/14/21 16:00 06/14/21 17:25 06/14/21 16:00 06/14/21 17:25 Laboratory Data at Discharge: WBC 6.10 K/uL (4.3-10.9) D 06/14/21 05:08 Hgb 9.6 g/dL (12.0-15.0) L 06/14/21 05:08 Hct 27.9 % (36.0-45.0) L 06/14/21 05:08 Plt Count 348 K/uL (152-406) D 06/14/21 05:08 Sodium 136 mmol/L (136-145) 06/14/21 05:08 Potassium 4.1 mmol/L (3.5-5.1) 06/14/21 05:08 BUN 4 mg/dL (7-18) L 06/14/21 05:08 Creatinine 0.51 mg/dL (0.55-1.3) L 06/14/21 05:08 Glucose 104 mg/dL (74-106) 06/14/21 05:08 Total Bilirubin 0.4 mg/dL (0.2-1.0) 06/05/21 03:22 AST 10 U/L (15-37) L 06/14/21 05:08 ALT 11 U/L (12-78) L 06/14/21 05:08 Alkaline Phosphatase 39 U/L (45-117) L 06/05/21 03:22 Lipase 90 U/L (73-393) 06/05/21 03:22 Home Medications: NK [No Home Meds] 06/04/21 Physician Discharge Instructions: Ambulated home. Pain medicine as needed. Diet as tolerated. You may shower. Change dressing as needed. Continue with incentive spirometer. Any questions or problems, go to the emergency room or contact me. See me me in my office on Tuesday. Followup: Uche Ortega MD [OUTSIDE PHYSICIAN] - (Follow up on , call to schedule appointment)
== END 2021-06-14 18:49 | disposition home or self-care (01) | DRG 330 ==
LOC: ER 19:22 → 4TH 06-04 01:23 → 2ND 06-06 17:36
PROVIDERS: ADMIT Surgery; ATTEND Surgery
PROC: 0DTB0ZZ Resection of Ileum, Open Approach (ICD-10-PCS; principal; 2021-06-06)
PROC: 0DQB0ZZ Repair Ileum, Open Approach (ICD-10-PCS; 2021-06-06)
DX: K56.600 Partial intestinal obstruction, unspecified as to cause (principal); K91.89 Other postprocedural complications and disorders of digestive system; K56.7 Ileus, unspecified; Z53.31 Laparoscopic surgical procedure converted to open procedure; Z20.822 Contact with and (suspected) exposure to COVID-19
CPT/HCPCS: 0240U; 36415; 74177; 80048; 80076; 80307; 81003; 81015; 81025; 83690; 84450; 84460; 85025; 88307; 94010; 94760; 96361; 96365; 96366; 96367; 96375; 97116; 97161; 99285; J0744; J1100; J1170; J2250; J2370; J2405; J2550; J2704; J2710; J3010; J7030; J7040; J7120; P9045; Q9967

== ENCOUNTER 2021-06-25 20:13 | Emergency (ER) | payer BC ==
--- OUTSIDE RECORDS SUMMARY | 2021-06-25 20:16 | XMS REPORT | Continuity of Care Document ---
:1965 Author Organization [facility] t Address [address] [place] [address] Care Team Providers Name Role Phone Long Attending Clinician Unavailable Linda OREILLY Attending Clinician Unavailable Manda DELEON Attending Clinician Payers Payer Name Policy Type Policy Number Effective Date Expiration Date S ource Problems This patient has no known problems. Allergies, Adverse Reactions, Alerts This patient has no known allergies or adverse reactions. Social History Social Habit Start Date Stop Date Quantity Comments Source Tobacco use and 2021-05-28 2021-05-28 Smokeless tobacco [facility] exposure 00:00:00 00:00:00 non-user Alcohol intake 2021-05-28 2021-05-28 Lifetime [facility] 00:00:00 00:00:00 non-drinker (finding) Sex Ass[birth year] At [birth year] [facility] 00:00:00 00:00:00 Smoking Status Start Date Stop Date Source Never smoked tobacco [facility] Medications Ordered Filled Start Stop Current Ordering Indication Dosage Frequency Signature Comments Components Source Medication Medication Date Date Medication? Clinician (SIG) Name Name No known No No known [facility] 10:14: s 06 No known No No known [facility] 10:14: s 06 Vital Signs Vital Name Observation Time Observation Value Comments Source Systolic blood pressure 2021-05-28 16:13:00 130 mm[Hg] [facility] Diastolic blood pressure 2021-05-28 16:13:00 86 mm[Hg] [facility] Heart rate 2021-05-28 16:13:00 68 /min [facility] Body temperature 2021-05-28 16:13:00 36.67 [facility] Body height 2021-05-28 16:13:00 167.6 cm [facility] Body weight 2021-05-28 16:13:00 74.526 [facility] BMI 2021-05-28 16:13:00 26.52 kg/m2 [facility] Procedures This patient has no known procedures. Encounters Start End Encounter Admission Attending Care Care Encounter Source Date/Time Date/Time Type Type Clinicians Facility Department ID 2021-04-29 Outpatient Inessa Kaufman [facility] [id number] [facility] 11:07:[id number] [facility] 2021-04-29 Outpatient Inessa Kaufman [facility] [id number] [facility] [address] 11:04:[id number] [facility] 2021-06-03 2021-06-03 Telephone Arabella Mckeon [id number] [place] 00:00:00 00:00:00 Arabella Mckeon [id number] [facility] MEDICAL [id number] [facility] [id number] 2021-05-28 2021-05-28 Office MARC Holman [facility] [id number] [place] 10:30:00 10:57:[address] [facility] [id number] Uche BARRERA 2 [id number] Results This patient has no known results.
--- NOTE | 2021-06-25 21:24 | RAD REPORT ---
EXAM DESCRIPTION: RAD - Chest Single View - 06/25/2021 9:14 pm CLINICAL HISTORY: COUGH Chest pain. COMPARISON: No comparisons FINDINGS: Portable technique limits examination quality. The lungs are grossly clear. The heart is normal in size. No displaced fractures. IMPRESSION: No acute intrathoracic process suspected.
[2021-06-25 21:55] LABS: Absolute Lymphocytes (CBC) 1.5 K/uL (0.7-4.9); Hematocrit 26.4 % (36.0-45.0); Lymphocytes % 7.7 % (15.3-44.8); MPV 7.3 fL (7.6-11.3); RBC Red Blood Cell Count 3.26 M/uL (3.86-4.86)
[2021-06-25 21:59] LABS: Protime INR 1.58
[2021-06-25 22:04] LABS: Urine Blood Negative (Negative); Urine Glucose Negative (Negative); Urine Protein Negative (Negative); Urine Specific Gravity 1.015 (1.005-1.030)
[2021-06-25] MEDS ORDERED: NA CHLORIDE 0.9% 1,000 ML ONE (22:11)
[2021-06-25 22:22] LABS: ALT/SGPT < 10 U/L (12-78); AST/SGOT 9 U/L (15-37); Albumin 1.9 g/dL (3.4-5.0); Alkaline Phosphatase 93 U/L (45-117); BUN Blood Urea Nitrogen 6 mg/dL (7-18); Bicarbonate 30 mmol/L (21-32); Bilirubin Direct < 0.1 mg/dL (0-0.2); Bilirubin Total 0.2 mg/dL (0.2-1.0); Glucose Level 111 mg/dL (74-106); Magnesium 1.6 mg/dL (1.8-2.4); NT PRO-BNP 827 pg/mL (<125); Protein, Total 6.2 g/dL (6.4-8.2); Sodium Level 139 mmol/L (136-145)
[2021-06-25 22:23] LABS: Potassium 2.3 mmol/L (3.5-5.1)
[2021-06-25] MEDS ORDERED: Levofloxacin500mg IV 500 MG/100 ML BAG IV ONE (22:25)
[2021-06-25 22:31] LABS: SARS-COV-2 RT PCR NEGATIVE (NEGATIVE)
[2021-06-25] MEDS ORDERED: MORPHINE 4 MG/ML SYR ONE (22:40)
[2021-06-25] MEDS ORDERED: ONDANSETRON 4 MG/2 ML VIAL ONE (22:40)
--- NOTE | 2021-06-26 00:40 | EDPHYS ---
Physician Documentation [facility] Name: Nereida Mason Age: 56 yrs Sex: Female : 1965 Arrival Date: 06/25/2021 Time: 20:13 Bed 14 Private MD: ED Physician Jose L Damon HPI: 06/25 20:52 This 56 yrs old Female presents to ER via Ambulatory with complaints of ghulam Fever, CHILLS, FATIGUE. 20:52 The patient reports fever, not measured (subjective). Onset: The symptoms/episode ghulam began/occurred 2 day(s) ago. Modifying factors: there are no obvious modifying factors. Associated signs and symptoms: Pertinent positives: arthralgias, cough. Severity of symptoms: At their worst the symptoms were mild in the emergency department the symptoms are unchanged. The patient has not experienced similar symptoms in the past. 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 Flu vaccine is not up to date. - Social history:: Smoking status: Patient denies any tobacco usage or history of. ROS: 20:54 Constitutional: Negative for fever, chills, and weight loss, Eyes: Negative for injury, ghulam pain, redness, and discharge, ENT: Negative for injury, pain, and discharge, Neck: Negative for injury, pain, and swelling, Cardiovascular: Negative for chest pain, palpitations, and edema, Respiratory: Negative for shortness of breath, cough, wheezing, and pleuritic chest pain, Abdomen/GI: Negative for abdominal pain, nausea, vomiting, diarrhea, and constipation, Back: Negative for injury and pain, : Negative for injury, bleeding, discharge, and swelling, MS/Extremity: Negative for injury and deformity, Skin: Negative for injury, rash, and discoloration, Psych: Negative for depression, anxiety, suicide ideation, homicidal ideation, and hallucinations, Allergy/Immunology: Negative for hives, rash, and allergies, Endocrine: Negative for neck swelling, polydipsia, polyuria, polyphagia, and marked weight changes, Hematologic/Lymphatic: Negative for swollen nodes, abnormal bleeding, and unusual bruising. 20:54 Neuro: Positive for weakness. Exam: 20:54 Constitutional: This is a well developed, well nourished patient who is awake, alert, ghulam and in no acute distress. Head/Face: Normocephalic, atraumatic. Eyes: Pupils equal round and reactive to light, extra-ocular motions intact. Lids and lashes normal. Conjunctiva and sclera are non-icteric and not injected. Cornea within normal limits. Periorbital areas with no swelling, redness, or edema. ENT: Nares patent. No nasal discharge, no septal abnormalities noted. Tympanic membranes are normal and external auditory canals are clear. Oropharynx with no redness, swelling, or masses, exudates, or evidence of obstruction, uvula midline. Mucous membranes moist. Neck: Trachea midline, no thyromegaly or masses palpated, and no cervical lymphadenopathy. Supple, full range of motion without nuchal rigidity, or vertebral point tenderness. No Meningismus. Chest/axilla: Normal chest wall appearance and motion. Nontender with no deformity. No lesions are appreciated. Cardiovascular: Regular rate and rhythm with a normal S1 and S2. No gallops, murmurs, or rubs. Normal PMI, no JVD. No pulse deficits. Respiratory: Lungs have equal breath sounds bilaterally, clear to auscultation and percussion. No rales, rhonchi or wheezes noted. No increased work of breathing, no retractions or nasal flaring. Abdomen/GI: Soft, non-tender, with normal bowel sounds. No distension or tympany. No guarding or rebound. No evidence of tenderness throughout. Back: No spinal tenderness. No costovertebral tenderness. Full range of motion. Skin: Warm, dry with normal turgor. Normal color with no rashes, no lesions, and no evidence of cellulitis. MS/ Extremity: Pulses equal, no cyanosis. Neurovascular intact. Full, normal range of motion. Neuro: Awake and alert, GCS 15, oriented to person, place, time, and situation. Cranial nerves II-XII grossly intact. Motor strength 5/5 in all extremities. Sensory grossly intact. Cerebellar exam normal. Normal gait. Psych: Awake, alert, with orientation to person, place and time. Behavior, mood, and affect are within normal limits. 20:54 Musculoskeletal/extremity: DVT Exam: No signs of deep vein thrombosis. no pain, no swelling, no tenderness, negative Homans' sign noted on exam, no appreciated bluish discoloration, no erythema, no increased warmth. 22:14 ECG was reviewed by the Attending Physician. [facility] Vital Signs: 20:21 BP 148 / 79; Pulse 95; Resp 18; Temp 98.4; Pulse Ox 97% ; Weight 77.11 kg; Height 5 ft. ss7 6 in. (167.64 cm); Pain 7/10; 20:52 BP 126 / 89 LA Supine (auto/reg); Pulse 93 MON; Resp 17 S; Temp 98.6; Pulse Ox 98% on sv1 R/A; Pain 10/10; 22:17 BP 127 / 64 RA Supine (auto/reg); Pulse 81 MON; Resp 17 S; Temp 98.6; Pulse Ox 98% on sv1 R/A; 06/26 01:10 BP 101 / 89 RA Supine (auto/reg); Pulse 78 MON; Resp 15 S; Pulse Ox 100% on R/A; sv1 02:28 BP 121 / 75 RA Supine (auto/reg); Pulse 85 MON; Resp 16 S; Pulse Ox 98% on R/A; Pain sv1 3/10; 06/25 20:21 Body Mass Index 27.44 (77.11 kg, 167.64 cm) ss7 MDM: 06/25 20:34 Patient medically screened. [facility] 20:55 Differential diagnosis: viral Infection, bacterial infection, URI, bronchitis, ghulam pneumonia UTI. Data reviewed: vital signs, nurses notes, lab test result(s), EKG, radiologic studies, plain films. Data interpreted: electronic device monitor: rate is 98 beats/min, rhythm is regular, Pulse oximetry: on room air is 98 %. Test interpretation: by ED physician or midlevel provider: ECG, plain radiologic studies. Counseling: I had a detailed discussion with the patient and/or guardian regarding: the historical points, exam findings, and any diagnostic results supporting the discharge/admit diagnosis, lab results, radiology results. 06/26 00:44 Physician consultation: Franc Oliver MD WANTS PATIENT TRANSFERRED FOR . 06/25 20:52 Order name: Basic Metabolic Panel; Complete Time: 22:33 06/25 20:52 Order name: CBC with Diff; Complete Time: 22:15 [facility] 06/25 20:52 Order name: LFT's; Complete Time: 22:33 ghulam 06/25 20:52 Order name: Magnesium; Complete Time: 22:33 06/25 20:52 Order name: NT PRO-BNP; Complete Time: 22:33 06/25 20:52 Order name: PT-INR; Complete Time: 22:15 ghulam 06/25 20:52 Order name: Troponin HS; Complete Time: 22:33 06/25 20:52 Order name: XRAY Chest (1 view); Complete Time: 21:41 [facility] 06/25 20:52 Order name: Blood Culture Adult (2) 06/25 20:52 Order name: Lactate; Complete Time: 22:33 [facility] 06/25 20:52 Order name: COVID-19/FLU A+B (Document "Date of Onset" if Symptomatic); Complete Time: [facility] :06/25 20:52 Order name: Urine Culture 06/25 22:04 Order name: Urine Dipstick-Ancillary; Complete Time: 22:15 EDMS 06/26 01:29 Order name: Phosphorus; Complete Time: 03:43 ghulam 06/25 20:52 Order name: EKG; Complete Time: 20:53 06/25 22:16 Order name: CT Chest For PE Angio 06/25 22:16 Order name: CT Abd/Pelvis - IV Contrast Only 06/25 20:52 Order name: Cardiac monitoring; Complete Time: 21:48 [facility] 06/25 20:52 Order name: EKG - Nurse/Tech; Complete Time: 22:05 06/25 20:52 Order name: IV Saline Lock; Complete Time: 21:48 06/25 20:52 Order name: Labs collected and sent; Complete Time: 21:48 [facility] 06/25 20:52 Order name: O2 Per Protocol; Complete Time: 21:48 06/25 20:52 Order name: O2 Sat Monitoring; Complete Time: 21:48 06/25 20:52 Order name: Urine Dipstick-Ancillary (obtain specimen); Complete Time: 22:05 06/25 22:33 Order name: IV Saline Lock - Large Bore; Complete Time: 23:34 ghulam EC/24 22:14 Rate is 79 beats/min. Rhythm is regular. QRS Counce is Normal. IL interval is normal. QRS ghulam interval is normal. QT interval is normal. No Q waves. T waves are Normal. Clinical impression: NSR w/ Non-specific ST/T Changes and No evidence of ischemia. Interpreted by me. Reviewed by me. Administered Medications: 22:17 Drug: NS 0.9% 1000 ml Route: IV; Rate: 1 bolus; Site: left antecubital; sv1 06/26 00:29 Follow up: Response: No adverse reaction; IV Status: Completed infusion sv1 06/25 22:34 Drug: levofloxacin 500 mg Volume: 100 ml; Route: IVPB; Infused Over: 60 mins; Site: sv1 left antecubital; 23:00 Drug: morphine 4 mg Route: IVP; Site: left antecubital; sv1 06/26 02:17 Follow up: Response: No adverse reaction; Pain is decreased sv1 02:18 Follow up: Response: No adverse reaction; Pain is decreased sv1 03:04 Follow up: Response: No adverse reaction; Pain is decreased sv1 06/25 23:00 Drug: Zofran (Ondansetron) 4 mg Route: IVP; Site: left antecubital; sv1 06/26 02:17 Follow up: Response: No adverse reaction; Nausea is decreased sv1 02:23 Follow up: Response: No adverse reaction; Nausea is decreased sv1 03:04 Follow up: Response: No adverse reaction sv1 01:01 Drug: NS 0.9% with KCl 20 mEq/L 1000 ml Route: IV; Rate: 150 ml/hr; Site: left sv1 antecubital; 03:04 Follow up: Response: No adverse reaction sv1 01:06 Drug: Potassium Chloride 20 mEq Route: IV; Rate: per protocol; Site: left antecubital; sv1 03:06 Follow up: Response: No adverse reaction sv1 01:10 Drug: Flagyl (metroNIDAZOLE) 500 mg Volume: 100 ml; Route: IVPB; Rate: 200 ml/hr; sv1 Infused Over: 30 mins; Site: left hand; 02:16 Drug: Dilaudid (HYDROmorphone) 1 mg Route: IVP; Site: left hand; sv1 02:22 Follow up: Response: No adverse reaction; Pain is decreased sv1 03:03 Follow up: Response: No adverse reaction; Pain is decreased sv1 02:16 Drug: Zofran (Ondansetron) 4 mg Route: IVP; Site: left hand; sv1 02:22 Follow up: Response: No adverse reaction; Nausea is decreased sv1 03:03 Follow up: Response: No adverse reaction sv1 02:18 Drug: Magnesium Sulfate 1 grams Route: IVPB; Infused Over: 1 hrs; Site: left hand; sv1 03:06 Drug: Potassium Chloride 20 mEq Route: IV; Rate: per protocol; Site: left antecubital; sv1 03:33 Drug: Lovenox (enoxaparin) 60 mg Route: Sub-Q; Site: abdomen; sv1 04:11 Follow up: Response: No adverse reaction sv1 04:22 Follow up: Response: No adverse reaction sv1 04:21 Drug: Meropenem 1 grams Route: IV; Rate: per protocol; Site: left hand; sv1 Disposition Summary: 06/26/21 00:39 Transfer Ordered Transfer Location: [facility] ghulam Reason: Higher level of care ghulam Condition: Fair ghulam Problem: new ghulam Symptoms: have improved ghulam Accepting Physician: to [facility](06/26/21 04:27) sv1 Diagnosis - Hydronephrosis with ureteral stricture, not elsewhere classified - SECONDARY TO ghulam LARGE PELVIC ABSCESS - Peritoneal abscess - 11.0X 8.7 X 13.3 CM CUL DE SAC ABSCESS SP BOWEL RESECTION ghulam - Hypokalemia ghulam - Pulmonary embolism without acute cor pulmonale - SMALL RIGHT LOWER LOBE ghulam - Elevated white blood cell count ghulam - Anemia, unspecified ghulam - Abdominal tenderness ghulam Forms: - Medication Reconciliation Form ghulam - SBAR form ghulam Signatures: Dispatcher [employer] Jose L Laureano MD MD cha Villicano, Steven RN RN sv1 Edda Sotomayor RN RN ss7 Corrections: (The following items were deleted from the chart) 01:33 00:39 to [facility] ghulam ghulam 04:27 01:33 to [facility] ghulam sv1
--- NOTE | 2021-06-26 00:40 | ER ---
Nurse's Notes [facility] Name: Nereida Mason Age: 56 yrs Sex: Female : 1965 Arrival Date: 06/25/2021 Time: 20:13 Bed 14 Private MD: Diagnosis: Hydronephrosis with ureteral stricture, not elsewhere classified-SECONDARY TO LARGE PELVIC ABSCESS;Peritoneal abscess-11.0X 8.7 X 13.3 CM CUL DE SAC ABSCESS SP BOWEL RESECTION;Hypokalemia;Pulmonary embolism without acute cor pulmonale-SMALL RIGHT LOWER LOBE ;Elevated white blood cell count;Anemia, unspecified;Abdominal tenderness Presentation: 06/25 20:19 Chief complaint: Patient states: c/o of lethargy, fever/ chills that began today. Bowel ss7 Obstruction surgery by Dr. Hale here 3 weeks ago. Coronavirus screen: Vaccine status: Patient reports being unvaccinated. Ebola Screen: No symptoms or risks identified at this time. Initial Sepsis Screen: Does the patient meet any 2 criteria? No. Patient's initial sepsis screen is negative. Does the patient have a suspected source of infection? No. Patient's initial sepsis screen is negative. Risk Assessment: Do you want to hurt yourself or someone else? Patient reports no desire to harm self or others. Onset of symptoms was June 25, 2021 at 12:00. 20:19 Method Of Arrival: Ambulatory 7 20:19 Acuity: DANIELLE 3 ss7 Triage Assessment: 20:20 General: Appears uncomfortable, Behavior is calm, cooperative, appropriate for age. 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 Flu vaccine is not up to date. - Social history:: Smoking status: Patient denies any tobacco usage or history of. Screenin:50 Abuse screen: Denies threats or abuse. Nutritional screening: No deficits noted. sv1 Tuberculosis screening: No symptoms or risk factors identified. Fall Risk None identified. Assessment: 20:53 Pain: Complains of pain in abdomen and pelvis Pain does not radiate. sv1 06/26 04:22 Reassessment: All labs and imaging completed. She tolerated all her meds well. She sv1 received a few ice chips. Afebrile. pain was managed fairly. She is being transferre to [facility]. Report was called Triston OREILLY at [facility]. EMS is here to transfer the patient. . Vital Signs: 06/25 20:21 BP 148 / 79; Pulse 95; Resp 18; Temp 98.4; Pulse Ox 97% ; Weight 77.11 kg; Height 5 ft. ss7 6 in. (167.64 cm); Pain 7/10; 20:52 BP 126 / 89 LA Supine (auto/reg); Pulse 93 MON; Resp 17 S; Temp 98.6; Pulse Ox 98% on sv1 R/A; Pain 10/10; 22:17 BP 127 / 64 RA Supine (auto/reg); Pulse 81 MON; Resp 17 S; Temp 98.6; Pulse Ox 98% on sv1 R/A; 06/26 01:10 BP 101 / 89 RA Supine (auto/reg); Pulse 78 MON; Resp 15 S; Pulse Ox 100% on R/A; sv1 02:28 BP 121 / 75 RA Supine (auto/reg); Pulse 85 MON; Resp 16 S; Pulse Ox 98% on R/A; Pain sv1 3/; 06/25 20:21 Body Mass Index 27.44 (77.11 kg, 167.64 cm) ss7 ED Course: 06/25 20:13 Patient arrived in ED. ag3 20:20 Triage completed. ss7 20:21 Arm band placed on right wrist. ss7 20:34 Jose L Damon MD is Attending Physician. [facility] 20:49 Sreedhar Freitas, DENILSON is Primary Nurse. sv1 20:50 Patient has correct armband on for positive identification. Placed in gown. Bed in low sv1 position. Call light in reach. Side rails up X2. Adult w/ patient. 21:15 XRAY Chest (1 view) In Process Unspecified. EDMS 21:47 Urine Culture Sent. sv1 21:47 COVID-19/FLU A+B (Document "Date of Onset" if Symptomatic) Sent. sv1 21:47 Lactate Sent. sv1 21:48 Blood Culture Adult (2) Sent. sv1 21:48 Basic Metabolic Panel Sent. sv1 21:48 CBC with Diff Sent. sv1 21:48 LFT's Sent. sv1 21:48 Magnesium Sent. sv1 21:48 NT PRO-BNP Sent. sv1 21:49 PT-INR Sent. sv1 21:49 Troponin HS Sent. sv1 22:05 Urine Culture Sent. sv1 22:05 COVID-19/FLU A+B (Document "Date of Onset" if Symptomatic) Sent. sv1 22:05 Lactate Sent. sv1 22:05 Blood Culture Adult (2) Sent. sv1 23:27 CT Chest For PE Angio In Process Unspecified. EDMS 23:28 CT Abd/Pelvis - IV Contrast Only In Process Unspecified. EDWY 06/26 01:10 Inserted saline lock: 20 gauge in left antecubital area, using aseptic technique. sv1 01:10 Inserted saline lock: 22 gauge in left hand, using aseptic technique. sv1 01:27 called [facility] to try to start transfer of patient to [facility]. cs9 03:27 Patient has been accepted to [facility] Room 417. cs9 04:22 No provider procedures requiring assistance completed. Patient transferred, IV remains sv1 in place. intact. Administered Medications: 06/25 22:17 Drug: NS 0.9% 1000 ml Route: IV; Rate: 1 bolus; Site: left antecubital; 1 06/26 00:29 Follow up: Response: No adverse reaction; IV Status: Completed infusion sv1 06/25 22:34 Drug: levofloxacin 500 mg Volume: 100 ml; Route: IVPB; Infused Over: 60 mins; Site: sv1 left antecubital; 23:00 Drug: morphine 4 mg Route: IVP; Site: left antecubital; sv1 06/26 02:17 Follow up: Response: No adverse reaction; Pain is decreased sv1 02:18 Follow up: Response: No adverse reaction; Pain is decreased sv1 03:04 Follow up: Response: No adverse reaction; Pain is decreased sv1 06/25 23:00 Drug: Zofran (Ondansetron) 4 mg Route: IVP; Site: left antecubital; sv1 06/26 02:17 Follow up: Response: No adverse reaction; Nausea is decreased sv1 02:23 Follow up: Response: No adverse reaction; Nausea is decreased sv1 03:04 Follow up: Response: No adverse reaction sv1 01:01 Drug: NS 0.9% with KCl 20 mEq/L 1000 ml Route: IV; Rate: 150 ml/hr; Site: left sv1 antecubital; 03:04 Follow up: Response: No adverse reaction sv1 01:06 Drug: Potassium Chloride 20 mEq Route: IV; Rate: per protocol; Site: left antecubital; sv1 03:06 Follow up: Response: No adverse reaction sv1 01:10 Drug: Flagyl (metroNIDAZOLE) 500 mg Volume: 100 ml; Route: IVPB; Rate: 200 ml/hr; sv1 Infused Over: 30 mins; Site: left hand; 02:16 Drug: Dilaudid (HYDROmorphone) 1 mg Route: IVP; Site: left hand; sv1 02:22 Follow up: Response: No adverse reaction; Pain is decreased sv1 03:03 Follow up: Response: No adverse reaction; Pain is decreased sv1 02:16 Drug: Zofran (Ondansetron) 4 mg Route: IVP; Site: left hand; sv1 02:22 Follow up: Response: No adverse reaction; Nausea is decreased sv1 03:03 Follow up: Response: No adverse reaction sv1 02:18 Drug: Magnesium Sulfate 1 grams Route: IVPB; Infused Over: 1 hrs; Site: left hand; sv1 03:06 Drug: Potassium Chloride 20 mEq Route: IV; Rate: per protocol; Site: left antecubital; sv1 03:33 Drug: Lovenox (enoxaparin) 60 mg Route: Sub-Q; Site: abdomen; sv1 04:11 Follow up: Response: No adverse reaction sv1 04:22 Follow up: Response: No adverse reaction sv1 04:21 Drug: Meropenem 1 grams Route: IV; Rate: per protocol; Site: left hand; sv1 Outcome: 00:39 ER care complete, transfer ordered by MD. parmar 04:22 Transferred by ground EMS to [facility]. sv1 04:22 Condition: stable 04:22 Instructed on the need for transfer. 04:27 Patient left the ED. sv1 Signatures: Dispatcher [employer] EDMS Jose L Damon MD MD cha Gomez, Alice 3 Maegan Ruelas 9 Sreedhar Freitas RN RN sv1 Edda oStomayor RN RN ss7 Corrections: (The following items were deleted from the chart) 06/25 23:16 22:00 Flagyl (metroNIDAZOLE) 500 mg 100 ml IVPB at 200 ml/hr in left antecubital over sv1 30 mins 100 ml sv1 23:17 22:40 Zofran (Ondansetron) 4 mg IVP in left antecubital sv1 sv1
[2021-06-26] MEDS ORDERED: MAGNESIUM SULFATE 1 gm IVPB 1 GM/100 ML BAG IV ONE (00:47)
[2021-06-26] MEDS ORDERED: KCL 20 MEQ/100 mL IVPB 100 ML IV ONE ×2 (00:47→01:34)
[2021-06-26] MEDS ORDERED: METRONIDAZOLE 500mg IVPB 500 MG/100 ML BAG IV ONE (00:48)
[2021-06-26] MEDS ORDERED: NS KCL 20MEQ 1,000 ML IV ONE (00:49)
[2021-06-26] MEDS ORDERED: HYDROMORPHONE HCL 1 MG/ML INJ ONE (02:06)
[2021-06-26] MEDS ORDERED: ONDANSETRON 4 MG/2 ML VIAL ONE (02:06)
[2021-06-26] MEDS ORDERED: ENOXAPARIN 60 MG/0.6 ML SQ ONE (03:14)
[2021-06-26] MEDS ORDERED: NA CHLORIDE 0.9% 100 ML IV ONE (04:19)
[2021-06-26] MEDS ORDERED: Meropenem 1000 MG/VIAL IV ONE (04:19)
[2021-06-26 04:43] VITALS: TEMP 98.6
[2021-06-26 04:47] VITALS: BP 121/75; O2SAT 98
--- NOTE | 2021-06-26 12:16 | RAD REPORT ---
EXAM DESCRIPTION: CT - Chest For Pe Angio - 06/26/2021 2:28 am ADDENDUM #1 Urgent finding reported to Dr. Jose L Damon at 06/25/2021 11:49 PM CDT Electronically signed by: Raphael Melton 06/26/2021 12:00 AM CDT End of Addendum EXAM DESCRIPTION: 1. CTA of the chest with contrast. 2. CT of the abdomen and pelvis with contrast. CLINICAL HISTORY: ABDOMINAL DISTENTION COMPARISON: 06/03/2021 TECHNIQUE: CTA of the chest obtained following IV administration of iodinated contrast. 3-D/MIP refo rmatted images available. CT of the abdomen and pelvis was then performed in the portal venous phase This exam was performed according to our departmental dose-optimization program, which includes autom ated exposure control, adjustment of the mA and/or kV according to patient size and/or use of iterati ve reconstruction technique. FINDINGS: Chest: Pulmonary arteries: Contrast bolus is suboptimal. No central filling defects. Small filling defects n oted in the right basilar segmental pulmonary arterial branches. Thyroid: No abnormalities of the visualized thyroid. Great Vessels: Great vessels have normal anatomic configuration. Thoracic Aorta: No abnormalities of the thoracic aorta identified. Heart: No cardiomegaly, significant pericardial effusion, or coronary artery atherosclerosis no bowin g of the intraventricular septum. Lymph Nodes: No enlarged mediastinal lymph nodes identified. Esophagus: No abnormalities of the esophagus identified. Other: Bilateral breast implants. Lungs: Mild bibasilar dependent atelectasis. Pleura: Small left pleural effusion. No pneumothorax. Trachea/Airways: No abnormalities of the visualized trachea or airways. Abdomen: Liver: The liver has normal size and density. No intrahepatic mass or biliary dilatation. Gallbladder: No calcified gallstones. Spleen, Pancreas, and Adrenal Glands: The spleen, pancreas, and adrenal glands are unremarkable. Kidneys: Hydronephrosis likely on the basis of extrinsic compression from pelvic fluid collection. No obstructing calculi. Vasculature: Aortoiliac atherosclerosis. IVC is unremarkable. The portal vein is patent. The proxim al visceral and renal arteries are patent. Stomach: Small hiatal hernia. LAP-BAND. Other: No free intraperitoneal air. There is a large peripherally enhancing fluid collection in t he cul-de-sac measuring 11.0 x 8.7 x 13.3 cm with adjacent fat stranding. Pelvis: Bladder: Urinary bladder is unremarkable. Bowel: No dilated loops of large or small bowel. Postoperative change of the right bowel. Scattered diverticula colon. Appendix: Normal appendix. Pelvis: Uterus is not enlarged. Bones: Multilevel endplate spondylosis. Osteoarthritic change of the hips. IMPRESSION: 1. Small filling defects in the right basilar segmental pulmonary arterial branches co mpatible with acute pulmonary emboli. Small clot burden. No large central pulmonary embolus. No right heart strain. 2. There is a large peripherally enhancing fluid collection in the cul-de-sac measuring 11.0 x 8.7 x 13.3 cm with adjacent fat stranding. This is concerning for abscess. 3. Small left pleural effusion with mild bibasilar dependent atelectasis. 4. Hydronephrosis likely on the basis of extrinsic compression from pelvic fluid collection. 5. Diverticulosis without evidence of acute diverticulitis. Electronically signed by: Raphael Melton 06/25/2021 11:56 PM CDT Due to temporary technical issues with the PACS/Fluency reporting system, reports are being signed by the in house radiologist without review as a courtesy to ensure prompt reporting. The interpreting r adiologist is fully responsible for the content of the report.
--- NOTE | 2021-06-26 12:32 | RAD REPORT ---
EXAM DESCRIPTION: CT - Abdomen Pelvis W Contrast - 06/26/2021 2:31 am ADDENDUM #1 Urgent finding reported to Dr. Jose L Damon at 06/25/2021 11:49 PM CDT Electronically signed by: Raphael Melton 06/26/2021 12:00 AM CDT End of Addendum EXAM DESCRIPTION: 1. CTA of the chest with contrast. 2. CT of the abdomen and pelvis with contrast. CLINICAL HISTORY: ABDOMINAL DISTENTION COMPARISON: 06/03/2021 TECHNIQUE: CTA of the chest obtained following IV administration of iodinated contrast. 3-D/MIP refo rmatted images available. CT of the abdomen and pelvis was then performed in the portal venous phase This exam was performed according to our departmental dose-optimization program, which includes autom ated exposure control, adjustment of the mA and/or kV according to patient size and/or use of iterati ve reconstruction technique. FINDINGS: Chest: Pulmonary arteries: Contrast bolus is suboptimal. No central filling defects. Small filling defects n oted in the right basilar segmental pulmonary arterial branches. Thyroid: No abnormalities of the visualized thyroid. Great Vessels: Great vessels have normal anatomic configuration. Thoracic Aorta: No abnormalities of the thoracic aorta identified. Heart: No cardiomegaly, significant pericardial effusion, or coronary artery atherosclerosis no bowin g of the intraventricular septum. Lymph Nodes: No enlarged mediastinal lymph nodes identified. Esophagus: No abnormalities of the esophagus identified. Other: Bilateral breast implants. Lungs: Mild bibasilar dependent atelectasis. Pleura: Small left pleural effusion. No pneumothorax. Trachea/Airways: No abnormalities of the visualized trachea or airways. Abdomen: Liver: The liver has normal size and density. No intrahepatic mass or biliary dilatation. Gallbladder: No calcified gallstones. Spleen, Pancreas, and Adrenal Glands: The spleen, pancreas, and adrenal glands are unremarkable. Kidneys: Hydronephrosis likely on the basis of extrinsic compression from pelvic fluid collection. No obstructing calculi. Vasculature: Aortoiliac atherosclerosis. IVC is unremarkable. The portal vein is patent. The proxim al visceral and renal arteries are patent. Stomach: Small hiatal hernia. LAP-BAND. Other: No free intraperitoneal air. There is a large peripherally enhancing fluid collection in t he cul-de-sac measuring 11.0 x 8.7 x 13.3 cm with adjacent fat stranding. Pelvis: Bladder: Urinary bladder is unremarkable. Bowel: No dilated loops of large or small bowel. Postoperative change of the right bowel. Scattered diverticula colon. Appendix: Normal appendix. Pelvis: Uterus is not enlarged. Bones: Multilevel endplate spondylosis. Osteoarthritic change of the hips. IMPRESSION: 1. Small filling defects in the right basilar segmental pulmonary arterial branches co mpatible with acute pulmonary emboli. Small clot burden. No large central pulmonary embolus. No right heart strain. 2. There is a large peripherally enhancing fluid collection in the cul-de-sac measuring 11.0 x 8.7 x 13.3 cm with adjacent fat stranding. This is concerning for abscess. 3. Small left pleural effusion with mild bibasilar dependent atelectasis. 4. Hydronephrosis likely on the basis of extrinsic compression from pelvic fluid collection. 5. Diverticulosis without evidence of acute diverticulitis. Electronically signed by: Raphael Melton 06/25/2021 11:56 PM CDT Due to temporary technical issues with the PACS/Fluency reporting system, reports are being signed by the in house radiologist without review as a courtesy to ensure prompt reporting. The interpreting r adiologist is fully responsible for the content of the report.
== END 2021-06-26 04:27 | disposition short-term general hospital (02) ==
LOC: ER 20:13
DX: N13.1 Hydronephrosis with ureteral stricture, not elsewhere classified (principal); K65.1 Peritoneal abscess; Z98.890 Other specified postprocedural states; E87.6 Hypokalemia; I26.99 Other pulmonary embolism without acute cor pulmonale; D64.9 Anemia, unspecified; D72.829 Elevated white blood cell count, unspecified; Z20.822 Contact with and (suspected) exposure to COVID-19
CPT/HCPCS: 93005; 87040 ×2; 87088; 85025; 87086; 80048; 36415; 83735; 84100; 85610; 80076; 83605; 81003; 84484; 83880; 0240U; 71275; 74177; 71045; 96372; 99285; Q9967; J3480 ×3; J3475; J1650; J2185; J1170; J7030; J2405 ×2

== ENCOUNTER 2021-07-07 12:17 | Emergency (ER) | payer BC ==
--- OUTSIDE RECORDS SUMMARY | 2021-07-07 12:22 | XMS REPORT | Continuity of Care Document ---
:1965 Author Organization [facility] t Address [address] [place] [address] Care Team Providers Name Role Phone Long Attending Clinician Unavailable JANICE OCHOA Attending Clinician Unavailable ADELINE PAN Attending Clinician Unavailable Linda OREILLY Attending Clinician Unavailable Manda DELEON Attending Clinician JANICE OCHOA Admitting Clinician Unavailable Payers Payer Name Policy Type Policy Number Effective Date Expiration Date S elvis [facility] OS [id number] 2021 00:00:00 POS/PPO/EPO Problems This patient has no known problems. Allergies, Adverse Reactions, Alerts Allergy Allergy Status Severity Reaction(s) Onset Inactive Treating Comm ents Source Name Type Date Date Clinician NO KNOWN Allergy Active [facility] ALLERGIE S Social History Social Habit Start Date Stop Date Quantity Comments Source Tobacco use and 2021-05-28 2021-05-28 Smokeless tobacco [facility] exposure 00:00:00 00:00:00 non-user Alcohol intake 2021-05-28 2021-05-28 Lifetime [facility] 00:00:00 00:00:00 non-drinker (finding) Sex Ass[birth year] At [birth year] [facility] 00:00:00 00:00:00 Smoking Status Start Date Stop Date Source Never smoked tobacco [facility] Medications Ordered Filled Start Stop Current Ordering Indication Dosage Frequency Signature Comments Components Source Medication Medication Date Date Medication? Clinician (SIG) Name Name No known No No known [facility] 2-24 medication [facility] 10:14: s 06 No known No No known [facility] medications 2-24 medication [facility] al[facility] 10:14: s 06 Vital Signs Vital Name Observation Time Observation Value Comments Source HEIGHT 2021-06-26 06:00:00 170.7 cm WEIGHT 2021-06-26 06:00:00 82 kg HEIGHT 2021-06-26 06:00:00 170.7 cm WEIGHT 2021-06-26 06:00:00 82 kg Systolic blood pressure 2021-05-28 16:13:00 130 mm[Hg] [facility] Diastolic blood pressure 2021-05-28 16:13:00 86 mm[Hg] [facility] Heart rate 2021-05-28 16:13:00 68 /min [...] Facility Department ID 2021-04-29 Outpatient Inessa Kaufman [facility] [id number] [facility] 11:07:13 [id number] [facility] ent Clinics 2021-04-29 Outpatient Inessa Kaufman [facility] [id number] [facility] 11:04:31 [id number] [facility] ent Clinics 2021-06-26 2021-06-29 Inpatient ER VAUGHN OCHOA General Med 4 [id number] [facility] 05:46:00 14:49:00 HUBERT 2021-06-03 2021-06-03 Telephone Arabella Mckeon [id number] [place] 00:00:00 00:00:00 Arabella Mckeon [id number] Health MEDICAL [id number] [facility] [id number] 1 2021-05-28 2021-05-[address] [facility] [id number] [place] 10:30:00 10:57:01 Visit [facility] [id number] ruben BARRERA 2 [id number] 4 Results Test Description Test Time Test Comments Results Result Comments Source BLOOD CULTURE 2021-07-01 10:00:49 Test Item Value Reference Range Interpretation Comme nts CULTURE (BEAKER) (test code = 1095) No growth in 5 days BODY FLUID CELL COUNT WITH [id number] 10:13:12 Test Item Value Reference Range Interpretation Comments APPEARANCE FLUID Purulent Clear A (BEAKER) (test code = 510) COLOR FLUID Brown Colorless, Straw A (BEAKER) (test code = 511) RBC FLUID (BEAKER) 71623 /cu mm See_Comment H [Automat ed (test code = 513) message] T he system which generated this result transmit ravinder reference range : <=1. The refere nce range was not u sed to interpret th is result as normal/abnormal . ADJUSTED WBC FLUID 829722 /cu mm See_Comment H [Automa ravinder (BEAKER) (test code message] The = 1691) system which generated this result transmit ravinder reference range : <=5. The refere nce range was not u sed to interpret th is result as normal/abnormal . LINING CELLS 0 /cu mm See_Comment [Automated (BEAKER) (test code message] The = 1590) system which generated this result transmit ravinder reference range : <=1. The refere nce range was not u sed to interpret th is result as normal/abnormal . NEUTROPHILS FLUID 99 % (BEAKER) (test code = 1656) LYMPHS FLUID 1 % (BEAKER) (test code = 488) MONO/MACROPHAGE 0 % FLUID (BEAKER) (test code = 489) EOSINOPHILS FLUID 0 % (BEAKER) (test code = 491) BASO FLUID (BEAKER) 0 % (test code = 492) INTERPRETATION-210 Agree with the (BEAKER) (test code above = 2619) differential. Consistent with an abscess. Negative for malignancy. [id number] [place], 0 (BEAKER) (test M.D. (electronic code = 2620) signature) CONTAINER BODY EDTA Tube FLUID (BEAKER) (test code = 2873) CBC W/PLT COUNT & AUTO [id number] 06:57:26 Test Item Value Reference Range Interpretation Comments WHITE BLOOD CELL COUNT (BEAKER) 8.3 K/ L 4.0-10.0 (test code = 775) RED BLOOD CELL COUNT (BEAKER) 3.18 M/ L 4.00-5.00 L (test code = 761) HEMOGLOBIN (BEAKER) (test code = 8.6 GM/DL 12.0-15.5 L 410) HEMATOCRIT (BEAKER) (test code = 27.7 % 36.0-46.0 L 411) MEAN CORPUSCULAR VOLUME (BEAKER) 87.1 fL 82.0-99.0 (test code = 753) MEAN CORPUSCULAR HEMOGLOBIN 27.0 pg 27.0-33.0 (BEAKER) (test code = 751) MEAN CORPUSCULAR HEMOGLOBIN CONC 31.0 GM/DL 32.0-36.0 L (BEAKER) (test code = 752) RED CELL DISTRIBUTION WIDTH 14.4 % 12.0-15.0 (BEAKER) (test code = 412) PLATELET COUNT (BEAKER) (test 482 K/CU MM 150-430 H code = 756) MEAN PLATELET VOLUME (BEAKER) 9.6 fL 6.0-11.5 (test code = 754) NUCLEATED RED BLOOD CELLS 0 /100 WBC 0-0 (BEAKER) (test code = 413) NEUTROPHILS RELATIVE PERCENT 47 % (BEAKER) (test code = 429) LYMPHOCYTES RELATIVE PERCENT 24 % (BEAKER) (test code = 430) MONOCYTES RELATIVE PERCENT 11 % (BEAKER) (test code = 431) EOSINOPHILS RELATIVE PERCENT 5 % (BEAKER) (test code = 432) BASOPHILS RELATIVE PERCENT 1 % (BEAKER) (test code = 437) NEUTROPHILS ABSOLUTE COUNT 3.88 K/ L 1.80-8.00 (BEAKER) (test code = 670) LYMPHOCYTES ABSOLUTE COUNT 1.96 K/ L 1.48-4.50 (BEAKER) (test code = 414) MONOCYTES ABSOLUTE COUNT (BEAKER) 0.89 K/ L 0.00-1.30 (test code = 415) EOSINOPHILS ABSOLUTE COUNT 0.41 K/ L 0.00-0.50 (BEAKER) (test code = 416) BASOPHILS ABSOLUTE COUNT (BEAKER) 0.07 K/ L 0.00-0.20 (test code = 417) IMMATURE GRANULOCYTES-RELATIVE 13 % 0-0 H PERCENT (BEAKER) (test code = 2801) BASIC METABOLIC [id number] 06:37:04 Test Item Value Reference Range Interpretation Comments SODIUM (BEAKER) 142 meq/L 135-148 (test code = 381) POTASSIUM (BEAKER) 4.4 meq/L 3.6-5.5 (test code = 379) CHLORIDE (BEAKER) 107 meq/L 98-106 H (test code = 382) CO2 (BEAKER) (test 29 meq/L 20-29 code = 355) BLOOD UREA NITROGEN 3 mg/dL 10-26 L (BEAKER) (test code = 354) CREATININE (BEAKER) 0.64 mg/dL 0.50-1.20 (test code = 358) GLUCOSE RANDOM 88 mg/dL 70-110 (BEAKER) (test code = 652) CALCIUM (BEAKER) 7.7 mg/dL 8.5-10.5 L (test code = 697) EGFR (BEAKER) (test 97 mL/min/1.73 ESTIMA RAVINDER GFR IS code = 1092) sq m NOT ACCURATE CREATININE CLEARANCE IN PREDICTING GLOMERULAR FILTRATION RATE . ESTIMATED GFR I S NOT APPLICABLE FOR DIALYSIS PATIEN TS. Refrigerator Repairman ID - [id number] ID - [id number] ID - [id number] ID - [id number] ID - WKIL20Qkzwcerr ID - [id number] ID - YZAZ49Orbdoxii ID - WBCF27Xayytjfd ID - KHXE14Bbvdjwtk ID - TOYZ60Qzatgxsg ID - MSRY74Bouacjku ID - SHUE18Zmezufxg ID - [id number] [id number] 15:59:24 Test Item Value Reference Range Interpretation Comments CULTURE (BEAKER) (test No anaerobes isolated code = 1095) CT, [id number] 11:15:00Status-post percutaneous drainage of a pelvic abscess that was up to 13 cm with drain placement. Patient had a bowel resection about 3-4 weeks ago. Pain is the right and left lower quadrants as well asthe suprapubic regionUnlisted Reason for Exam - Click Yes and Enter Reason Below- >NoIs this for enterography?->NoWill this procedure require oral contrast?->NoALBINA [facility] : 1965 Sex: FFINAL REPORT CT abdomen and pelvis with contrast History: Abdominal infection suspected Comparison: 06/25/2021 study performed at an outside institution. Technique: serial axial imaging was performed following up to 100cc of non ionic iodinated intravenous contrast as per departmental protocol. Multiplanar images are reconstructed and reviewed when indicated. This CT examination is performed using one or more of the following dose reduction techniques: Automated exposure control, adjustment of the mA and /or kV according to patient size, and/or use of iterative reconstruction technique. Findings: Small bilateral pleural effusions have developed. Again seen is a g astric band. Unremarkable appearance of pancreas and spleen. Unremarkable appearance of liver and gallbladder. Unremarkable appearance of adrenal glands, kidneys, ureters, and urinary bladder. Previous bilateral hydronephrosis has resolved.. Interval insertion of a drainage catheter into the previous large collection involving the left adnexa and pelvic cul-de-sac. The collection is significantly decreased in size. For example, the anteroposterior dimension of the component within the pelvic cul-de-sac now measures 2.8 cm, previously 7.5 cm. Postoperative changes are again seen within the anterior abdominal wall. Probable tiny seromas at the operative site demonstrate no significant change. No small or large bowel obstruction. No apparent bowel wall thickening. No findings to indicate acute appendicitis. No free fluid or lymphadenopathy. No abdominal aortic aneurysm. No aggressive osseous lesion. Impression: 1. Interval insertion of drainage catheter into the previous pelvic collection, which has significantly decreased in size.2. Interval resolution of previous bilateral hydronephrosis. Signed: John Milan Verified Date/Time: 06/28/2021 11:15:55 Reading Location: [place] [id number] Consult Reading Room CB W/PLT COUNT & AUTO [id number] 08:42:10 Test Item Value Reference Range Interpretation Comments WHITE BLOOD CELL COUNT (BEAKER) 8.9 K/ L 4.0-10.0 (test code = 775) RED BLOOD CELL COUNT (BEAKER) 2.88 M/ L 4.00-5.00 L (test code = 761) HEMOGLOBIN (BEAKER) (test code = 7.8 GM/DL 12.0-15.5 L 410) HEMATOCRIT (BEAKER) (test code = 24.7 % 36.0-46.0 L 411) MEAN CORPUSCULAR VOLUME (BEAKER) 85.8 fL 82.0-99.0 (test code = 753) MEAN CORPUSCULAR HEMOGLOBIN 27.1 pg 27.0-33.0 (BEAKER) (test code = 751) MEAN CORPUSCULAR HEMOGLOBIN CONC 31.6 GM/DL 32.0-36.0 L (BEAKER) (test code = 752) RED CELL DISTRIBUTION WIDTH 14.4 % 12.0-15.0 (BEAKER) (test code = 412) PLATELET COUNT (BEAKER) (test 399 K/CU MM 150-430 code = 756) MEAN PLATELET VOLUME (BEAKER) 10.0 fL 6.0-11.5 (test code = 754) NUCLEATED RED BLOOD CELLS 0 /100 WBC 0-0 (BEAKER) (test code = 413) NEUTROPHILS RELATIVE PERCENT 65 % (BEAKER) (test code = 429) LYMPHOCYTES RELATIVE PERCENT 17 % (BEAKER) (test code = 430) MONOCYTES RELATIVE PERCENT 9 % (BEAKER) (test code = 431) EOSINOPHILS RELATIVE PERCENT 3 % (BEAKER) (test code = 432) BASOPHILS RELATIVE PERCENT 0 % (BEAKER) (test code = 437) NEUTROPHILS ABSOLUTE COUNT 5.78 K/ L 1.80-8.00 (BEAKER) (test code = 670) LYMPHOCYTES ABSOLUTE COUNT 1.52 K/ L 1.48-4.50 (BEAKER) (test code = 414) MONOCYTES ABSOLUTE COUNT (BEAKER) 0.82 K/ L 0.00-1.30 (test code = 415) EOSINOPHILS ABSOLUTE COUNT 0.24 K/ L 0.00-0.50 (BEAKER) (test code = 416) BASOPHILS ABSOLUTE COUNT (BEAKER) 0.03 K/ L 0.00-0.20 (test code = 417) IMMATURE GRANULOCYTES-RELATIVE 6 % 0-0 H PERCENT (BEAKER) (test code = 2801) BODY FLUID CULTURE + GRAM [id number] 08:29:57 Test Item Value Reference Range Interpretation Comments CULTURE (BEAKER) (test ESCHERICHIA COLI A 3 + Escherichia code = 1095) coli Amikacin (test code = S 1) Ampicillin + Sulbactam S (test code = 6) Aztreonam (test code = S 32) Cefazolin (test code = S 9) Cefepime (test code = S 51) Cefoxitin (test code = S 68) Ceftazidime (test code S = 27) Ceftriaxone (test code S = 52) Ertapenem (test code = S 38) Gentamicin (test code S = 18) Levofloxacin (test R code = 22) Meropenem (test code = S 34) Nitrofurantoin (test S code = 23) Piperacillin + S Tazobactam (test code = 29) Tetracycline (test S code = 2) Tigecycline (test code S = 133) Tobramycin (test code S = 25) Trimethoprim + S Sulfamethoxazole (test code = 47) GRAM STAIN RESULT 4+ White blood (BEAKER) (test code = cells seen 1123) GRAM STAIN RESULT 1+ gram negative (BEAKER) (test code = rods 749523) [id number] 07:56:03 Test Item Value Reference Range Interpretation Comments MAGNESIUM (BEAKER) (test code = 1.7 mg/dL 1.5-3.0 627) Refrigerator Repairman ID - NSUVAGIYAOperator ID - NSUVAGIYAOperator ID - NSUVAGIYAOperator ID - NSUVAGIYABASIC METABOLIC [id number] 07:55:00 Test Item Value Reference Range Interpretation Comments SODIUM (BEAKER) 136 meq/L 135-148 (test code = 381) POTASSIUM (BEAKER) 4.2 meq/L 3.6-5.5 (test code = 379) CHLORIDE (BEAKER) 104 meq/L 98-106 (test code = 382) CO2 (BEAKER) (test 27 meq/L 20-29 code = 355) BLOOD UREA NITROGEN 4 mg/dL 10-26 L (BEAKER) (test code = 354) CREATININE (BEAKER) 0.59 mg/dL 0.50-1.20 (test code = 358) GLUCOSE RANDOM 90 mg/dL 70-110 (BEAKER) (test code = 652) CALCIUM (BEAKER) 7.7 mg/dL 8.5-10.5 L (test code = 697) EGFR (BEAKER) (test 106 mL/min/1.73 ESTIM ATED GFR IS code = 1092) sq m NOT ACCURATE CREATININE CLEARANCE IN PREDICTING GLOMERULAR FILTRATION RATE . ESTIMATED GFR I S NOT APPLICABLE FOR DIALYSIS PATIEN TS. Refrigerator Repairman ID - NSUVAGIYAOperator ID - NSUVAGIYAOperator ID - NSUVAGIYAOperator ID - NSUVAGIYAOperatorID - NSUVAGIYAOperator ID - NSUVAGIYAOperator ID - NSUVAGIYAOperator ID - NSUVAGIYAOperator ID - NSUVAGIYAOperator ID - NSUVAGIYA CREATININE, RANDOM [id number] 12:13:08 Test Item Value Reference Range Interpretation Comments CREATININE URINE (BEAKER) (test 48.6 mg/dL code = 375) Reference Range: No NormalsOperator ID - LITOPOTASSIUM, RANDOM [id number] 12:05:57 Test Item Value Reference Range Interpretation Comments POTASSIUM URINE (BEAKER) (test 17.0 meq/L code = 195) Reference Range: No NormalsOperator ID - LITOCT, CHEST WITH IV CONTRAST- PE TEST [id number] 10:47:00Unlisted Reason for Exam - Click Yes and Enter Reason Below->NoTEMECULA [facility] : 1965 Sex: FFINAL REPORT CT Chest with contrast (PE protocol) History: Pulmonary embolism suspected, high pretest probability Comparison: none Technique: serial axial imaging was performed following up to 100cc of non ionic iodinated intravenous contrast as per departmental protocol. Multiplanar, and maximum intensity projection images are reconstructed and reviewed. This CT e xamination is performed using one or more of the following dose reduction techniques: Automated exposure control, adjustment of the mA and /or kV according to patient size, and/or use of iterative reconstruction technique. Findings:No mediastinal or hilar lymphadenopathy. Normal size heart. No son cardial effusion. No thoracic aortic aneurysm or dissection. No pulmonary arterial filling defect. Patent central airways. Small bilateral pleural effusions. No pneumothorax is apparent. Mild bilateral lower lobe subsegmental atelectasis. The lungs are otherwise clear. Bilateral breast implants are noted. Partial visualization of a gastric band. No aggressive osseous lesion. Impression: 1. No evidence of pulmonary embolus.2. Small bilateral pleural effusions. Signed: John Milan MDReport Verified Date/Time: 06/27/2021 10:47:38 Reading Location: [address] Consult Reading Room [id number] 08:03:22 Test Item Value Reference Range Interpretation Comments MAGNESIUM (BEAKER) (test code = 1.7 mg/dL 1.5-3.0 627) Refrigerator Repairman ID - LITOOperator ID - LITOOperator ID - LITOOperator ID - LITOBASIC METABOLIC [id number] 05:44:08 Test Item Value Reference Range Interpretation Comments SODIUM (BEAKER) 138 meq/L 135-148 (test code = 381) POTASSIUM (BEAKER) 2.8 meq/L 3.6-5.5 L (test code = 379) CHLORIDE (BEAKER) 101 meq/L 98-106 (test code = 382) CO2 (BEAKER) (test 28 meq/L 20-29 code = 355) BLOOD UREA NITROGEN 4 mg/dL 10-26 L (BEAKER) (test code = 354) CREATININE (BEAKER) 0.61 mg/dL 0.50-1.20 (test code = 358) GLUCOSE RANDOM 96 mg/dL 70-110 (BEAKER) (test code = 652) CALCIUM (BEAKER) 7.8 mg/dL 8.5-10.5 L (test code = 697) EGFR (BEAKER) (test 102 mL/min/1.73 ESTIM ATED GFR IS code = 1092) sq m NOT ACCURATE CREATININE CLEARANCE IN PREDICTING GLOMERULAR FILTRATION RATE . ESTIMATED GFR I S NOT APPLICABLE FOR DIALYSIS PATIEN TS. Refrigerator Repairman ID - LITOOperator ID - LITOOperator ID - LITOOperator ID - LITOOperator ID - LITOOperator ID - LITOOperator ID - LITOOperator ID - LITOOperator ID - LITOOperator ID - LITOOperator ID - LITOOperator ID - LITOOperator ID - LITOCBC W/PLT COUNT & AUTO [id number] 05:12:04 Test Item Value Reference Range Interpretation Comments WHITE BLOOD CELL COUNT (BEAKER) 13.1 K/ L 4.0-10.0 H (test code = 775) RED BLOOD CELL COUNT (BEAKER) 2.73 M/ L 4.00-5.00 L (test code = 761) HEMOGLOBIN (BEAKER) (test code = 7.6 GM/DL 12.0-15.5 L 410) HEMATOCRIT (BEAKER) (test code = 23.3 % 36.0-46.0 L 411) MEAN CORPUSCULAR VOLUME (BEAKER) 85.3 fL 82.0-99.0 (test code = 753) MEAN CORPUSCULAR HEMOGLOBIN 27.8 pg 27.0-33.0 (BEAKER) (test code = 751) MEAN CORPUSCULAR HEMOGLOBIN CONC 32.6 GM/DL 32.0-36.0 (BEAKER) (test code = 752) RED CELL DISTRIBUTION WIDTH 14.2 % 12.0-15.0 (BEAKER) (test code = 412) PLATELET COUNT (BEAKER) (test 385 K/CU MM 150-430 code = 756) MEAN PLATELET VOLUME (BEAKER) 9.8 fL 6.0-11.5 (test code = 754) NUCLEATED RED BLOOD CELLS 0 /100 WBC 0-0 (BEAKER) (test code = 413) NEUTROPHILS RELATIVE PERCENT 79 % (BEAKER) (test code = 429) LYMPHOCYTES RELATIVE PERCENT 11 % (BEAKER) (test code = 430) MONOCYTES RELATIVE PERCENT 6 % (BEAKER) (test code = 431) EOSINOPHILS RELATIVE PERCENT 1 % (BEAKER) (test code = 432) BASOPHILS RELATIVE PERCENT 0 % (BEAKER) (test code = 437) NEUTROPHILS ABSOLUTE COUNT 10.39 K/ L 1.80-8.00 H (BEAKER) (test code = 670) LYMPHOCYTES ABSOLUTE COUNT 1.44 K/ L 1.48-4.50 L (BEAKER) (test code = 414) MONOCYTES ABSOLUTE COUNT (BEAKER) 0.81 K/ L 0.00-1.30 (test code = 415) EOSINOPHILS ABSOLUTE COUNT 0.13 K/ L 0.00-0.50 (BEAKER) (test code = 416) BASOPHILS ABSOLUTE COUNT (BEAKER) 0.03 K/ L 0.00-0.20 (test code = 417) IMMATURE GRANULOCYTES-RELATIVE 2 % 0-0 H PERCENT (BEAKER) (test code = 2801) CT, DRAINAGE W/ CATH [id number] 12:53:00Reason for exam:->abdominal abscessAnesthesia:->IV sedation [facility] : 1965 Sex: FFINAL REPORT CT-GUIDED PELVIC ABSCESS DRAINAGE History provided: Po stop patient, pelvic abscess PROCEDURE: Informed consent was obtained. Patient's medication list wasreviewed. Timeout procedure was performed. Skin was prepped with ChloraPrep. 1% Xylocaine anesthesiautilized. Moderate conscious sedation was achieved utilizing 2 mg IV Versed and 100 ug IV Fentanyl while continuously monitoring cardiorespiratory function. The patient was monitored by the radiology nurse. Sedation time was 20 minutes. From a left anterior approach, puncture was performed with a onestep needle into the pelvic abscess.. Purulent fluid was obtained and specimen was submitted for Gram stain and cultures. Over a guidewire, dilatation was performed with placement of an 8 Finnish locking loop catheter. A total of 350 cc pus was removed. The catheter was then sutured in place with 2-0 silk suture and connected to Stef-Herring suction bulb drain. Sterile dressing applied. Supervision and interpretation: The abscess appears largely evacuated. Of concern is the presence of bilateral hydronephrosis and hydroureter, more so on the right, which was apparent on the outside CT study. It is possible that this is simply due to compression of the ureters by the abscess, but the possibility ofdistal ureteral compromise, particularly on the right, cannot be excluded at this time. I would therefore recommend that the patient undergo bilateral renal ultrasound in 2 days. COMMENT: This exam was performed according to our departmental dose-optimization program, which includes automated exposurecontrol, adjustment of the mA and/or kV according to patient size and/or use of iterative reconstruction technique. Signed: Mya Love MDReport Verified Date/Time: 06/26/2021 12:53:52 Reading Location: [facility] Radiology Reading Room VENOUS DOPPLER LEGS, [id number] 10:31:00Reason for exam:->Screen for DVT [facility] : 1965 Sex: FFINAL REPORT Bilateral lower extremity venous Doppler. History: DVT screening Discussion: Grayscale, color Doppler, and spectral wave form analysis was performed of both lower extremity deep venous systems from the common femoral through popliteal veins. Evaluationof the greater saphenous, posterior tibial, and peroneal veins were also performed. There is normal spontaneous phasic flow with normal response to compression and augmentation maneuvers bilaterally.IMPRESSION: Normal bilateral lower extremity venous Doppler examination. No evidence of DVT. Signed:Mya Love MDReport Verified Date/Time: 06/26/2021 10:31:11 Reading Location: [facility] Radiology Reading Room IRON, TIBC, % SAT. (WITHOUT FERRITIN)2021-06-26 09:44:37 Test Item Value Reference Range Interpretation Comments IRON (BEAKER) (test code = 547) 17.0 ug/dL 45.0-170.0 L TOTAL IRON BINDING CAPACITY 144 ug/dL 250-550 L (BEAKER) (test code = 769) IRON % SATURATION (2) (BEAKER) 12 % 20-55 L (test code = 2590) Refrigerator Repairman ID - DSENSONOperator ID - DSENSONBASIC METABOLIC [id number] 08:53:26 Test Item Value Reference Range Interpretation Comments SODIUM (BEAKER) 140 meq/L 135-148 (test code = 381) POTASSIUM (BEAKER) 2.5 meq/L 3.6-5.5 LL (test code = 379) CHLORIDE (BEAKER) 102 meq/L 98-106 (test code = 382) CO2 (BEAKER) (test 28 meq/L 20-29 code = 355) BLOOD UREA NITROGEN 3 mg/dL 10-26 L (BEAKER) (test code = 354) CREATININE (BEAKER) 0.60 mg/dL 0.50-1.20 (test code = 358) GLUCOSE RANDOM 104 mg/dL 70-110 (BEAKER) (test code = 652) CALCIUM (BEAKER) 8.1 mg/dL 8.5-10.5 L (test code = 697) EGFR (BEAKER) (test 104 mL/min/1.73 ESTIM ATED GFR IS code = 1092) sq m NOT ACCURATE CREATININE CLEARANCE IN PREDICTING GLOMERULAR FILTRATION RATE . ESTIMATED GFR I S NOT APPLICABLE FOR DIALYSIS PATIEN TS. Refrigerator Repairman ID - DSENSONOperator ID - DSENSONOperator ID - DSENSONOperator ID - DSENSONOperator ID - DSENSONOperator ID - DSENSONOperator ID - DSENSONOperator ID - DSENSONOperator ID - DSENSONOperator ID - [id number] 08:44:16 Test Item Value Reference Range Interpretation Comments MAGNESIUM (BEAKER) (test code = 1.9 mg/dL 1.5-3.0 627) Refrigerator Repairman ID - DSENSONOperator ID - DSENSONOperator ID - DSENSONOperator ID - [id number] 08:40:40 Test Item Value Reference Range Interpretation Comments PHOSPHORUS (BEAKER) (test code = 3.0 mg/dL 2.5-4.5 604) Refrigerator Repairman ID - DSENSONPROTHROMBIN TIME/[id number] 08:38:20 Test Item Value Reference Range Interpretation Comments PROTIME (BEAKER) 14.9 seconds 9.3-12.0 H Final Infor mation (test code = 759) (Auto Outp ut) INR (BEAKER) (test 1.39 See_Comment Final Inf ormation code = 370) (Auto Output) [Automated mess age] The system Watchsend generated this result transmitted ref erence range: <=5.90. The reference range was not used to int erpret this result as normal/abnormal . RECOMMENDED COUMADIN/WARFARIN INR THERAPY RANGESSTANDARD DOSE: 2.0 - 3.0 Includes: PROPHYLAXIS forvenous thrombosis, systemic embolization; TREATMENT for venous thrombosis and/or pulmonary embolus.HIGH RISK: Target INR is 2.5-3.5 for patients with mechanical heart valves.HEMOGLOBIN [id number] 08:36:16 Test Item Value Reference Range Interpretation Comments HEMOGLOBIN A1C (BEAKER) (test code = 4.9 % 4.3-6.1 368) Refrigerator Repairman ID - DSENSONCBC W/PLT COUNT & AUTO [id number] 08:27:06 Test Item Value Reference Range Interpretation Comments WHITE BLOOD CELL COUNT (BEAKER) 19.7 K/ L 4.0-10.0 H (test code = 775) RED BLOOD CELL COUNT (BEAKER) 3.33 M/ L 4.00-5.00 L (test code = 761) HEMOGLOBIN (BEAKER) (test code = 9.0 GM/DL 12.0-15.5 L 410) HEMATOCRIT (BEAKER) (test code = 28.1 % 36.0-46.0 L 411) MEAN CORPUSCULAR VOLUME (BEAKER) 84.4 fL 82.0-99.0 (test code = 753) MEAN CORPUSCULAR HEMOGLOBIN 27.0 pg 27.0-33.0 (BEAKER) (test code = 751) MEAN CORPUSCULAR HEMOGLOBIN CONC 32.0 GM/DL 32.0-36.0 (BEAKER) (test code = 752) RED CELL DISTRIBUTION WIDTH 13.9 % 12.0-15.0 (BEAKER) (test code = 412) PLATELET COUNT (BEAKER) (test 499 K/CU MM 150-430 H code = 756) MEAN PLATELET VOLUME (BEAKER) 9.3 fL 6.0-11.5 (test code = 754) NUCLEATED RED BLOOD CELLS 0 /100 WBC 0-0 (BEAKER) (test code = 413) NEUTROPHILS RELATIVE PERCENT 83 % (BEAKER) (test code = 429) LYMPHOCYTES RELATIVE PERCENT 6 % (BEAKER) (test code = 430) MONOCYTES RELATIVE PERCENT 8 % (BEAKER) (test code = 431) EOSINOPHILS RELATIVE PERCENT 1 % (BEAKER) (test code = 432) BASOPHILS RELATIVE PERCENT 0 % (BEAKER) (test code = 437) NEUTROPHILS ABSOLUTE COUNT 16.31 K/ L 1.80-8.00 H (BEAKER) (test code = 670) LYMPHOCYTES ABSOLUTE COUNT 1.20 K/ L 1.48-4.50 L (BEAKER) (test code = 414) MONOCYTES ABSOLUTE COUNT (BEAKER) 1.50 K/ L 0.00-1.30 H (test code = 415) EOSINOPHILS ABSOLUTE COUNT 0.12 K/ L 0.00-0.50 (BEAKER) (test code = 416) BASOPHILS ABSOLUTE COUNT (BEAKER) 0.05 K/ L 0.00-0.20 (test code = 417) IMMATURE GRANULOCYTES-RELATIVE 3 % 0-0 H PERCENT (BEAKER) (test code = 5619)
[2021-07-07] MEDS ORDERED: ONDANSETRON 4 MG/2 ML VIAL ONE (12:57)
[2021-07-07] MEDS ORDERED: MORPHINE 4 MG/ML SYR ONE ×2 (12:57→16:31)
[2021-07-07] MEDS ORDERED: NA CHLORIDE 0.9% 1,000 ML ONE (13:03)
[2021-07-07 13:16] LABS: Absolute Lymphocytes (CBC) 2.3 K/uL (0.7-4.9); Hematocrit 33.5 % (36.0-45.0); Lymphocytes % 27.7 % (15.3-44.8); MPV 7.9 fL (7.6-11.3); RBC Red Blood Cell Count 4.01 M/uL (3.86-4.86)
[2021-07-07 13:32] LABS: Albumin 2.9 g/dL (3.4-5.0); Bilirubin Total 0.2 mg/dL (0.2-1.0); Potassium 4.1 mmol/L (3.5-5.1); Protein, Total 8.1 g/dL (6.4-8.2)
[2021-07-07 14:07] LABS: SARS-COV-2 RT PCR NEGATIVE (NEGATIVE)
--- NOTE | 2021-07-07 14:31 | RAD REPORT ---
EXAM DESCRIPTION: CTAbdomen Pelvis W Contrast - 07/07/2021 2:21 pm CLINICAL HISTORY: Abdominal pain. ABD PAIN COMPARISON: Abdomen Pelvis W Contrast dated 06/25/2021; Abdomen Pelvis W Contrast dated 06/03/2021 TECHNIQUE: Biphasic CT imaging of the abdomen and pelvis was performed with 100 ml non-ionic IV cont rast. All CT scans are performed using dose optimization technique as appropriate and may include automated exposure control or mA/KV adjustment according to patient size. FINDINGS: The lung bases are clear.Lap band is noted. The liver, spleen, pancreas, adrenal glands and kidneys are within normal limits. A few mildly prominent small bowel loops are seen in the right abdomen. Postsurgical changes are pres ent. Appendectomy. There is a rim enhancing fluid collection in the cul de sac of Eliezer in the pel vis containing small air bubbles and measuring approximately 5.5 x 4.4 cm. This has decreased in size substantially since June 2021 study. No evidence of significant lymphadenopathy. Sigmoid diverticul osis is present without diverticulitis. Moderate lumbar degenerative changes. IMPRESSION: The deep pelvic abscess collection is again identified within the cul-de-sac of Eliezer, but is substantially smaller than on the prior study. It remains present, however, measuring 5.5 x 4 .4 cm. Mildly prominent small bowel loops in the right abdomen probably represent regional ileus. Mild sigmoid diverticulosis.
--- NOTE | 2021-07-07 15:16 | EDPHYS ---
Physician Documentation [facility] Name: Nereida Mccormick Age: 56 yrs Sex: Female : 1965 Arrival Date: 07/07/2021 Time: 12:21 Bed 20 Private MD: ED Physician Merlene Roberts HPI: 07/07 12:53 This 56 yrs old Female presents to ER via Ambulatory with complaints of Abdominal Pain, pm1 Diarrhea, Weakness. 12:53 The patient presents with abdominal pain in the lower abdomen. Onset: The pm1 symptoms/episode began/occurred 3 day(s) ago. The symptoms do not radiate. Associated signs and symptoms: Pertinent positives: diarrhea, Generalized weakness, Pertinent negatives: fever, nausea, vomiting. The symptoms are described as sharp, pressure. Modifying factors: The symptoms are alleviated by nothing, the symptoms are aggravated by nothing. Severity of pain: in the emergency department the pain is unchanged. The patient has been recently seen by a physician: Dr. Shannon DELEON. Recommended coming to the ER for evaluation. Patient with small bowel obstruction requiring surgery a few weeks ago. Patient with abscess status post bowel resection. Patient reports pain to lower abdominal area and diarrhea. Patient was reevaluated in the office by Dr. Ortega and she was sent here for evaluation of the abscess. 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 Flu vaccine is not up to date. - Social history:: Smoking status: Patient denies any tobacco usage or history of. ROS: 12:53 Cardiovascular: Negative for chest pain, palpitations, and edema, Respiratory: Negative pm1 for shortness of breath, cough, wheezing, and pleuritic chest pain. 12:53 Back: Negative for injury and pain, : Negative for injury, bleeding, discharge, and swelling, MS/Extremity: Negative for injury and deformity, Skin: Negative for injury, rash, and discoloration, Neuro: Negative for headache, weakness, numbness, tingling, and seizure. 12:53 Constitutional: Positive for chills, Negative for fever. 12:53 Abdomen/GI: Positive for abdominal pain, diarrhea, of the right lower quadrant and left lower quadrant, Negative for nausea, vomiting, constipation. 12:53 All other systems are negative. Exam: 12:53 Constitutional: This is a well developed, well nourished patient who is awake, alert, pm1 and in no acute distress. Head/Face: Normocephalic, atraumatic. 12:53 Back: No spinal tenderness. No costovertebral tenderness. Full range of motion. Skin: Warm, dry with normal turgor. Normal color with no rashes, no lesions, and no evidence of cellulitis. MS/ Extremity: Pulses equal, no cyanosis. Neurovascular intact. Full, normal range of motion. 12:53 Eyes: Exam is negative for acute changes, Pupils: no acute changes, Extraocular movements: no acute changes, Conjunctiva: no acute changes, no injection. 12:53 ENT: Exam is negative for acute changes, Mouth: no acute changes, Lips: normal, moist, Oral mucosa: normal, pink and intact, moist. 12:53 Cardiovascular: Exam negative for acute changes, Rate: normal, Rhythm: regular, Pulses: no pulse deficits are appreciated, Heart sounds: normal. 12:53 Respiratory: Exam negative for acute changes, respiratory distress, shortness of breath, Breath sounds: are clear throughout. 12:53 Abdomen/GI: Inspection: scar(s), are noted in the ventral midline incision without any signs of cellulitis, drainage, dehisence, or infection, Palpation: soft, in all quadrants, mild abdominal tenderness, in the suprapubic area. 12:53 Neuro: Exam negative for acute changes, Orientation: is normal, Mentation: is normal, Motor: is normal, moves all fours, Sensation: no obvious gross deficits. Vital Signs: 12:29 BP 119 / 85; Pulse 83; Resp 17; Temp 98.1; Pulse Ox 96% ; Weight 70.76 kg; Height 5 ft. ap3 6 in. (167.64 cm); Pain 6/10; 13:53 BP 137 / 88; Pulse 76; Resp 17; Pulse Ox 98% on R/A; morales 14:45 BP 128 / 74; Pulse 74; Resp 17; Pulse Ox 100% on R/A; morales 12:29 Body Mass Index 25.18 (70.76 kg, 167.64 cm) ap3 MDM: 12:43 Patient medically screened. pm1 15:00 Physician consultation: Uche Ortega MD was called at 14:59, was contacted at 14:59, pm1 regarding consult, patient's condition, after a discussion of the case, a recommendation for transfer for higher level of care is made. 15:10 Data reviewed: vital signs. Data interpreted: Pulse oximetry: on room air is 100 %. pm1 Interpretation: normal. 15:10 Counseling: I had a detailed discussion with the patient and/or guardian regarding: the pm1 historical points, exam findings, and any diagnostic results supporting the discharge/admit diagnosis, lab results, radiology results, the need to transfer to another facility, [facility] does not immediately have the required specialist. 15:27 Physician consultation: Uche Ortega MD in the emergency department to see patient at pm1 15:27. 15:56 Physician consultation: Hospitalist [facility] Will contact IR and call us back pm1 for plan of care. 16:37 ED course: Outpatient IR would take 1 week to be treated so they will accept her for pm1 transfer. 16:39 Physician consultation: Uche Ortega MD was called at 16:39, was contacted at 16:39, pm1 regarding update on patient plan of care. Agrees with [facility] for antibiotic therapy. 07/07 12:52 Order name: CBC with Diff; Complete Time: 13:25 pm1 07/07 12:52 Order name: CMP; Complete Time: 13:50 pm1 07/07 12:52 Order name: Lipase; Complete Time: 13:50 pm1 07/07 12:52 Order name: COVID-19/FLU A+B (Document "Date of Onset" if Symptomatic); Complete Time: pm1 14:10 07/07 12:52 Order name: Blood Culture Adult (2) pm1 07/07 12:52 Order name: Procalcitonin; Complete Time: 14:10 pm1 07/07 12:52 Order name: CT Abd/Pelvis - IV Contrast Only; Complete Time: 14:52 pm1 07/07 12:52 Order name: Lactate; Complete Time: 13:50 pm1 07/07 16:37 Order name: Urine Dipstick-Ancillary; Complete Time: 16:40 EDMS 07/07 12:52 Order name: IV Saline Lock; Complete Time: 12:59 pm1 07/07 12:52 Order name: Labs collected and sent; Complete Time: 12:59 pm1 07/07 16:00 Order name: Urine Dipstick-Ancillary (obtain specimen); Complete Time: 16:38 pm1 Administered Medications: 12:58 Drug: Zofran (Ondansetron) 4 mg Route: IVP; Site: right antecubital; morales 12:59 Follow up: Response: No adverse reaction morales 12:58 Drug: morphine 4 mg Route: IVP; Site: right antecubital; morales 12:59 Follow up: Response: No adverse reaction morales 13:01 Drug: NS 0.9% 1000 ml Route: IV; Rate: 1000 ml; Site: right antecubital; morales 16:26 Follow up: IV Status: Completed infusion morales 16:38 Drug: morphine 4 mg Route: IVP; Site: right antecubital; morales 16:38 Follow up: Response: No adverse reaction morales 16:42 Drug: Zosyn (piperacillin-tazobactam) 3.375 grams Route: IVPB; Infused Over: 60 mins; morales Site: right antecubital; Disposition Summary: 07/07/21 15:15 Transfer Ordered Transfer Location: Other Acute Care Facility pm1 Reason: Higher level of care pm1 Condition: Stable pm1 Problem: new pm1 Symptoms: have improved pm1 Accepting Physician: (07/07/21 18:28) morales Diagnosis - Peritoneal abscess pm1 Forms: - Medication Reconciliation Form pm1 - SBAR form pm1 Signatures: Dispatcher [employer] EDMS Kenny Arellano, RASHAWN CORRUGATOR HELPER pm1 Dania Santizo RN RN ap3 Perla Canseco RN RN morales Corrections: (The following items were deleted from the chart) 15:16 15:15 pm1 pm1 15:16 15:16 pm1 pm1 15:17 15:15 Intraabdominal abscess pm1 pm1 15:49 12:53 Patient with small bowel obstruction requiring surgery a few weeks ago. Patient pm1 with abscess status post bowel resection. Patient reports pain to lower abdominal area and diarrhea. pm1 18:28 15:16 AL pm1 morales
--- NOTE | 2021-07-07 15:16 | ER ---
Nurse's Notes [facility] Name: Nereida Mccormick Age: 56 yrs Sex: Female : 1965 Arrival Date: 07/07/2021 Time: 12:21 Bed 20 Private MD: Diagnosis: Peritoneal abscess Presentation: 07/07 12:29 Chief complaint: Patient states: she had a bowel obstruction surgery a couple weeks ap3 ago, of which she developed an abscess. Patient states she had a drain placed for the abscess, and it has since been removed. However, she reports continued abdominal pain, nausea, diarrhea, and weakness. Patient states she contacted Dr. Smith over concern of the continued symptoms and he instructed her to come be evaluated. Coronavirus screen: At this time, the client does not indicate any symptoms associated with coronavirus-19. Ebola Screen: No symptoms or risks identified at this time. Initial Sepsis Screen: Does the patient meet any 2 criteria? No. Patient's initial sepsis screen is negative. Does the patient have a suspected source of infection? No. Patient's initial sepsis screen is negative. Risk Assessment: Do you want to hurt yourself or someone else? Patient reports no desire to harm self or others. Onset of symptoms was June 23, 2021. 12:29 Method Of Arrival: Ambulatory ap3 12:29 Acuity: DANIELLE 3 ap3 Triage Assessment: 12:33 General: Appears in no apparent distress. uncomfortable, Behavior is calm, cooperative, ap3 appropriate for age. Pain: Complains of pain in abdomen Pain currently is 8 out of 10 on a pain scale. Is intermittent, Alleviated by rest, Aggravated by exercise, increased activity, repositioning, weight bearing. Neuro: Level of Consciousness is awake, alert, obeys commands, Oriented to person, place, time, situation, Appropriate for age. Cardiovascular: Patient's skin is warm and dry. Respiratory: Airway is patent Respiratory effort is even, unlabored, Respiratory pattern is regular, symmetrical. GI: Reports lower abdominal pain, upper abdominal pain, cramping, diarrhea, intolerance of fluids, intolerance of food, nausea. 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 Flu vaccine is not up to date. - Social history:: Smoking status: Patient denies any tobacco usage or history of. Screenin:34 Abuse screen: Denies threats or abuse. Nutritional screening: Has had N/V for 3 or more ap3 days. Tuberculosis screening: No symptoms or risk factors identified. 13:01 Fall Risk IV access (20 points). morales Assessment: 13:01 General: Appears in no apparent distress. Behavior is calm, cooperative. Pain: morales Complains of pain in abdomen. GI: Bowel sounds present X 4 quads. Abd is soft Abdomen is tender to palpation in right lower quadrant and left lower quadrant Reports diarrhea, Pain is 7 out of 10 on a pain scale. Vital Signs: 12:29 BP 119 / 85; Pulse 83; Resp 17; Temp 98.1; Pulse Ox 96% ; Weight 70.76 kg; Height 5 ft. ap3 6 in. (167.64 cm); Pain 6/10; 13:53 BP 137 / 88; Pulse 76; Resp 17; Pulse Ox 98% on R/A; morales 14:45 BP 128 / 74; Pulse 74; Resp 17; Pulse Ox 100% on R/A; morales 12:29 Body Mass Index 25.18 (70.76 kg, 167.64 cm) ap3 ED Course: 12:21 Patient arrived in ED. mr 12:32 Triage completed. ap3 12:34 Arm band placed on right wrist. ap3 12:38 Perla Canseco, RN is Primary Nurse. morales 12:41 Kenny Arellano NP is PHCP. pm1 12:41 Merlene Roberts MD is Attending Physician. pm1 13:01 Patient has correct armband on for positive identification. Bed in low position. morales 13:01 No provider procedures requiring assistance completed. Inserted saline lock: 20 gauge morales in right antecubital area, using aseptic technique. 14:22 CT Abd/Pelvis - IV Contrast Only In Process Unspecified. EDMS 15:17 initiated transfer to [facility]. bd 17:22 pt accepted in transfer to [facility] by dr ross,admin approval given bd by Marisela Oneil. 18:28 Patient transferred, IV remains in place. morales Administered Medications: 12:58 Drug: Zofran (Ondansetron) 4 mg Route: IVP; Site: right antecubital; morales 12:59 Follow up: Response: No adverse reaction morales 12:58 Drug: morphine 4 mg Route: IVP; Site: right antecubital; morales 12:59 Follow up: Response: No adverse reaction morales 13:01 Drug: NS 0.9% 1000 ml Route: IV; Rate: 1000 ml; Site: right antecubital; morales 16:26 Follow up: IV Status: Completed infusion morales 16:38 Drug: morphine 4 mg Route: IVP; Site: right antecubital; morales 16:38 Follow up: Response: No adverse reaction morales 16:42 Drug: Zosyn (piperacillin-tazobactam) 3.375 grams Route: IVPB; Infused Over: 60 mins; morales Site: right antecubital; Outcome: 15:15 ER care complete, transfer ordered by MD. elias 18:28 Transferred to [facility]. morales 18:28 Condition: stable 18:28 Instructed on the need for transfer. 18:28 Patient left the ED. morales Signatures: Dispatcher [employer] EDMS Valerie Lowe Mary mr Marinas, Patrick, LIBRARY CIRCULATION ASSISTANT LIBRARY CIRCULATION ASSISTANT pm1 Dania Santizo RN RN ap3 Perla Canseco RN RN morales
[2021-07-07 16:37] LABS: Urine Blood Trace-lysed (Negative); Urine Glucose Negative (Negative); Urine Protein Negative (Negative); Urine Specific Gravity 1.015 (1.005-1.030); Urine pH 5.5 (5.0-7.0)
[2021-07-07] MEDS ORDERED: NA CHLORIDE 0.9% 100 ML IV ONE (16:50)
[2021-07-07] MEDS ORDERED: PIPERACIL/TAZO 3.375 GM VIAL IV ONE (16:50)
[2021-07-08 08:06] VITALS: TEMP 98.1
[2021-07-08 08:08] VITALS: BP 128/74; O2SAT 100
== END 2021-07-07 18:28 ==
LOC: ER 12:17
DX: K65.1 Peritoneal abscess (principal); Z98.890 Other specified postprocedural states; Z20.822 Contact with and (suspected) exposure to COVID-19
CPT/HCPCS: 87040 ×2; 85025; 36415; 83605; 81003; 83690; 80053; 84145; 0240U; 74177; Q9967; J2543; J7030; J2405; 96361; 96374; 96375; 99285

== ENCOUNTER 2021-11-15 13:07 | Emergency (ER) | payer BC ==
[2021-11-15 14:34] LABS: Urine Blood Negative (Negative); Urine Glucose Negative (Negative); Urine Protein Negative (Negative)
[2021-11-15 14:59] LABS: Urine Bacteria None Seen /HPF (<20); Urine RBC None Seen /HPF (None Seen)
[2021-11-15 15:03] LABS: SARS-CoV-2 Antigen Rapid Res Positive (Negative)
--- NOTE | 2021-11-15 15:17 | EDPHYS ---
Physician Documentation [facility] Name: Nereida Mccormick Age: 56 yrs Sex: Female : 1965 Arrival Date: 11/15/2021 Time: 13:11 Bed 9 Private MD: FERCHO Physician Jose L Damon HPI: 11/15 15:17 This 56 yrs old Female presents to ER via Ambulatory with complaints of Body Aches, snw Weakness. 15:17 Pt c/o weakness, headache, congestion, diarrhea x 2 days. Onset: The symptoms/episode snw began/occurred suddenly, 2 day(s) ago, and became persistent. Severity of symptoms: At their worst the symptoms were moderate. The patient has not experienced similar symptoms in the past. It is unknown whether or not the patient has recently seen a physician. 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 Last tetanus immunization: > 10 years ago. - Social history:: Smoking status: Patient denies any tobacco usage or history of. Patient/guardian denies using alcohol, street drugs. ROS: 16:13 Eyes: Negative for injury, pain, redness, and discharge, ENT: Negative for injury, snw pain, and discharge, Neck: Negative for injury, pain, and swelling, Cardiovascular: Negative for chest pain, palpitations, and edema, Respiratory: Negative for shortness of breath, cough, wheezing, and pleuritic chest pain. 16:13 Back: Negative for injury and pain, : Negative for injury, bleeding, discharge, and swelling, MS/Extremity: Negative for injury and deformity, Skin: Negative for injury, rash, and discoloration. 16:13 Constitutional: Positive for body aches, malaise, poor PO intake. 16:13 Abdomen/GI: Positive for abdominal pain, diarrhea. 16:13 Neuro: Positive for headache. Exam: 16:13 Constitutional: This is a well developed, well nourished patient who is awake, alert, snw and in no acute distress. Head/Face: Normocephalic, atraumatic. Eyes: Pupils equal round and reactive to light, extra-ocular motions intact. Lids and lashes normal. Conjunctiva and sclera are non-icteric and not injected. Cornea within normal limits. Periorbital areas with no swelling, redness, or edema. ENT: Nares patent. No nasal discharge, no septal abnormalities noted. Tympanic membranes are normal and external auditory canals are clear. Oropharynx with no redness, swelling, or masses, exudates, or evidence of obstruction, uvula midline. Mucous membranes moist. Neck: Trachea midline, no thyromegaly or masses palpated, and no cervical lymphadenopathy. Supple, full range of motion without nuchal rigidity, or vertebral point tenderness. No Meningismus. Chest/axilla: Normal chest wall appearance and motion. Nontender with no deformity. No lesions are appreciated. Cardiovascular: Regular rate and rhythm with a normal S1 and S2. No gallops, murmurs, or rubs. Normal PMI, no JVD. No pulse deficits. Respiratory: Lungs have equal breath sounds bilaterally, clear to auscultation and percussion. No rales, rhonchi or wheezes noted. No increased work of breathing, no retractions or nasal flaring. Abdomen/GI: Soft, non-tender, with normal bowel sounds. No distension or tympany. No guarding or rebound. No evidence of tenderness throughout. Back: No spinal tenderness. No costovertebral tenderness. Full range of motion. Skin: Warm, dry with normal turgor. Normal color with no rashes, no lesions, and no evidence of cellulitis. MS/ Extremity: Pulses equal, no cyanosis. Neurovascular intact. Full, normal range of motion. Neuro: Awake and alert, GCS 15, oriented to person, place, time, and situation. Cranial nerves II-XII grossly intact. Motor strength 5/5 in all extremities. Sensory grossly intact. Cerebellar exam normal. Normal gait. Psych: Awake, alert, with orientation to person, place and time. Behavior, mood, and affect are within normal limits. Vital Signs: 13:52 BP 128 / 95; Pulse 104; Resp 20; Temp 98.3; Pulse Ox 100% ; Weight 81.65 kg; Height 5 kb3 ft. 6 in. (167.64 cm); Pain 8/10; 16:34 BP 126 / 83; Pulse 90; Resp 16; Pulse Ox 100% on R/A; dh3 13:52 Body Mass Index 29.05 (81.65 kg, 167.64 cm) kb3 MDM: 14:55 Patient medically screened. snw 15:15 Data reviewed: vital signs, nurses notes. Data interpreted: Pulse oximetry: on room air snw is 100 %. Interpretation: normal. Counseling: I had a detailed discussion with the patient and/or guardian regarding: the historical points, exam findings, and any diagnostic results supporting the discharge/admit diagnosis, the presence of at least one elevated blood pressure reading (>120/80) during this emergency department visit, lab results, the need for outpatient follow up, to return to the emergency department if symptoms worsen or persist or if there are any questions or concerns that arise at home. Special discussion: I have referred the patient to see his PCP for further evaluation of high blood pressure. Based on the history and exam findings, there is no indication for further emergent testing or inpatient evaluation. I discussed with the patient/guardian the need to see the primary care provider for further evaluation of the symptoms. 11/15 13:17 Order name: Urine Culture snw 11/15 13:17 Order name: Urine Microscopic Only; Complete Time: 15:03 snw 11/15 13:17 Order name: Urine Dipstick-Ancillary (obtain specimen); Complete Time: 14:26 snw 11/15 13:17 Order name: SARS RAPID; Complete Time: 15:14 snw 11/15 14:34 Order name: Urine Dipstick-Ancillary; Complete Time: 14:38 EDMS 11/15 16:14 Order name: Recheck VS; Complete Time: 16:37 snw Administered Medications: No medications were administered Disposition Summary: 11/15/21 15:16 Discharge Ordered Location: Home snw Condition: Stable snw Diagnosis - SARS-associated coronavirus as the cause of diseases classified elsewhere snw Followup: snw - With: Private Physician - When: 2 - 3 days - Reason: Recheck today's complaints, Continuance of care, Re-evaluation by your physician Followup: snw - With: Emergency Department - When: As needed - Reason: Worsening of condition Discharge Instructions: - Discharge Summary Sheet snw - COVID-19 snw - COVID-19 Frequently Asked Questions snw - 10 Things You Can Do to Manage Your COVID-19 Symptoms at Home - [facility] snw Forms: - Medication Reconciliation Form snw - Thank You Letter snw - Antibiotic Education snw - Prescription Opioid Use snw Signatures: Dispatcher [employer] EDMS Jolly Trujillo, LAST MODEL MAKER-C LAST MODEL MAKER-Csnw Mayra Morales, RN RN kb3
--- NOTE | 2021-11-15 15:17 | ER ---
Nurse's Notes [facility] Name: Nereida Mccormick Age: 56 yrs Sex: Female : 1965 Arrival Date: 11/15/2021 Time: 13:11 Bed 9 Private MD: Diagnosis: SARS-associated coronavirus as the cause of diseases classified elsewhere Presentation: 11/15 13:52 Chief complaint: Patient states: Sinus drainage, ear pressure, body aches, diarrhea, kb3 headache x2 days. Coronavirus screen: Vaccine status: Patient reports being unvaccinated. Client presents with at least one sign or symptom that may indicate coronavirus-19. Standard/surgical mask placed on the client. Provider contacted for isolation considerations. Ebola Screen: Patient negative for fever greater than or equal to 101.5 degrees Fahrenheit, and additional compatible Ebola Virus Disease symptoms Patient denies exposure to infectious person. Patient denies travel to an Ebola-affected area in the 21 days before illness onset. No acute neurological deficit is noted. Pre-hospital glucose is not applicable to this patient. Initial Sepsis Screen: Does the patient meet any 2 criteria? HR > 90 bpm. No. Patient's initial sepsis screen is negative. Does the patient have a suspected source of infection? No. Patient's initial sepsis screen is negative. Risk Assessment: Do you want to hurt yourself or someone else? Patient reports no desire to harm self or others. Onset of symptoms was November 13, 2021. 13:52 Method Of Arrival: Ambulatory kb3 13:52 Acuity: DANIELLE 4 kb3 Triage Assessment: 13:58 The onset of the patients symptoms was November 14, 2021 at 09:00. General: Appears kb3 uncomfortable, ill, Behavior is calm, cooperative. Pain: Complains of pain in head Pain does not radiate. Pain currently is 8 out of 10 on a pain scale. Quality of pain is described as aching. Neuro: No deficits noted. Reports headache Denies blurred vision difficulty swallowing, numbness. 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 Last tetanus immunization: > 10 years ago. - Social history:: Smoking status: Patient denies any tobacco usage or history of. Patient/guardian denies using alcohol, street drugs. Screenin:56 Abuse screen: Denies threats or abuse. Denies injuries from another. Nutritional ss screening: No deficits noted. Tuberculosis screening: Never had TB. Assessment: 16:56 General: Appears in no apparent distress. Respiratory: Airway is patent Respiratory ss effort is even, unlabored. Derm: Skin is pink, warm \T\ dry. normal. Musculoskeletal: Circulation, motion, and sensation intact. Range of motion: intact in all extremities, Swelling absent. Vital Signs: 13:52 BP 128 / 95; Pulse 104; Resp 20; Temp 98.3; Pulse Ox 100% ; Weight 81.65 kg; Height 5 kb3 ft. 6 in. (167.64 cm); Pain 8/10; 16:34 BP 126 / 83; Pulse 90; Resp 16; Pulse Ox 100% on R/A; dh3 13:52 Body Mass Index 29.05 (81.65 kg, 167.64 cm) kb3 ED Course: 13:11 Patient arrived in ED. rg4 13:15 Jolly Trujillo FNP-C is PHCP. snw 13:15 Jose L Damon MD is Attending Physician. snw 13:18 Jolly Trujillo FNP-C is PHCP. snw 13:58 Triage completed. kb3 13:58 Arm band placed on right wrist. kb3 14:26 SARS RAPID Sent. kb3 14:26 Urine Culture Sent. kb3 14:26 Urine Microscopic Only Sent. kb3 16:56 Patient has correct armband on for positive identification. Bed in low position. Call ss light in reach. 16:56 No provider procedures requiring assistance completed. Patient did not have IV access ss during this emergency room visit. Administered Medications: No medications were administered Medication: 16:56 VIS not applicable for this client. ss Outcome: 15:16 Discharge ordered by . snw 16:56 Discharged to home ambulatory. ss 16:56 Condition: good 16:56 Discharge instructions given to patient, family, Instructed on discharge instructions, follow up and referral plans. 16:59 Patient left the ED. ss Signatures: Jolly Trujillo, PLATING TANK OPERATOR APPRENTICE-C PLATING TANK OPERATOR APPRENTICE-Csnw Jaylene Bhagat RN RN ss Charline Boyer rg4 Alesha Lamar 3 Mayra Morales RN RN kb3
[2021-11-15 18:16] VITALS: TEMP 98.3; O2SAT 100
[2021-11-15 18:18] VITALS: BP 126/83
== END 2021-11-15 16:59 | disposition home or self-care (01) ==
LOC: ER 13:07
DX: U07.1 COVID-19 (principal)
CPT/HCPCS: 36415; 81003; 81015; 87086; 87088; 87811; 99283